=== PATIENT | male | born 1950 | race Caucasian/White ===

== ENCOUNTER 2016-08-31 15:33 | Emergency (ER) | payer MEDICARE, OTHER ==
[~2016-08-31] VITALS: Ht 167.6 cm; Wt 58.5 kg
[~2016-08-31 15:33] MED LIST: ANTI2TAB PO; DUONI NEB; HYDR50 PO; PAXI20TA26 PO; RANI150 PO; SERO100T PO; TRAZ100 PO; ZOFR4TAB3 PO
[2016-08-31 15:50] VITALS: BP 106/76; PULSE 64; RESP 16; O2SAT 95
[2016-08-31] MEDS ORDERED: TRAZ50TA12 PO (17:53)
[2016-08-31] MEDS ORDERED: LISI-519 PO (17:53)
[2016-08-31] MEDS ORDERED: VIST50CA PO (17:53)
[2016-08-31] MEDS ORDERED: RANI150T PO (17:53)
[2016-08-31] MEDS ORDERED: FOLI20CA (17:53)
[2016-08-31] MEDS ORDERED: PROP10TA6 PO (17:53)
[2016-08-31] MEDS ORDERED: SERO50TA PO (17:53)
[2016-08-31] MEDS ORDERED: NALT50TA3 PO (17:53)
[2016-08-31] MEDS ORDERED: PAXI30TA7 PO (17:53)
[2016-08-31 17:54] VITALS: BP 138/87; PULSE 63; RESP 16; O2SAT 97
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
--- NOTE | 2016-08-31 18:51 | RADHPO ---
EXAM DATE/TIME: 08/31/2016 18:24 [facility] COMPARISON: CT ABDOMEN & PELVIS W CONTRAST, March 24, 2015, 9:34. CT LUMBAR SPINE W/O CONTRAST, December 17, 11:56. INDICATIONS : Fell, complains of back pain. MEDICAL HISTORY : None. SURGICAL HISTORY : None. ENCOUNTER: Initial ACUITY: 2 days PAIN SCORE: 8/10 LOCATION: Lumbar FINDINGS: The soft tissues again reveal extensive vascular calcifications in the aorta without evidence of aneu rysm formation. Bony structures reveal stable degenerative changes narrowed L5-S1 disc space with fac et arthritic changes L4-S1 and anterior marginal spurring at all levels most prominent at L5-S1 and L 1-2. There is a mild concavity of the superior vertebral endplate of L1 new relati ve to remote in CT scan which could represent any interim compression. CONCLUSION: Mild contact with the superior vertebral endplate L1 new relative to prior CT scans visualized in thi s region which represents an interim compression Toño Leonardo MD on August 31, 2016 at 18:46 Board Certified Radiologist. This report was verified electronically.
[2016-08-31 19:00] VITALS: BP 128/62; PULSE 60; RESP 16; O2SAT 98
[2016-08-31 20:00] VITALS: BP 134/67; PULSE 60; RESP 16; O2SAT 96
--- NOTE | 2016-08-31 20:32 | RADHPO ---
EXAM DATE/TIME: 08/31/2016 20:00 [facility] COMPARISON: CT BRAIN W/O CONTRAST, December 18, 2013, 16:13. INDICATIONS : Fall. Head pain. RADIATION DOSE: 59.98 CTDIvol (mGy) MEDICAL HISTORY : Hypertension. SURGICAL HISTORY : None. ENCOUNTER: Initial ACUITY: 1 day PAIN SCALE: 10/10 LOCATION: cranial TECHNIQUE: Multiple contiguous axial images were obtained of the head. Using automated exposure control and adj ustment of the mA and/or kV according to patient size, radiation dose was kept as low as reasonably a chievable to obtain optimal diagnostic quality images. FINDINGS: CEREBRUM: The ventricles are normal for age. No evidence of midline shift, mass lesion, hemorrhage or acute in farction. No extra-axial fluid collections are seen. POSTERIOR FOSSA: The cerebellum and brainstem are intact. The 4th ventricle is midline. The cerebellopontine angle i s unremarkable. EXTRACRANIAL: The visualized portion of the orbits is intact. Progressive sinus disease is appreciated with additio nal involvement now in the to the ethmoid sinus disease with air-fluid levels in bilateral maxillary sinuses and sphenoid sinuses SKULL: The calvaria is intact. No evidence of skull fracture. CONCLUSION: Intracranially negative with no acute abnormality. Progressing sinus disease Toño Leonardo MD on August 31, 2016 at 20:29 Board Certified Radiologist. This report was verified electronically.
[2016-08-31 21:05] VITALS: BP 132/66
== END 2016-08-31 21:10 | disposition home or self-care (01) ==
LOC: PHED 15:33
DX: S00.93XA Contusion of unspecified part of head, initial encounter (principal); J44.9 Chronic obstructive pulmonary disease, unspecified; I10 Essential (primary) hypertension; K21.9 Gastro-esophageal reflux disease without esophagitis; F43.10 Post-traumatic stress disorder, unspecified; W18.39XA Other fall on same level, initial encounter; Z91.81 History of falling; Y93.89 Activity, other specified
CPT/HCPCS: 70450; 72100

== ENCOUNTER 2017-05-20 06:53 | Inpatient (IN) | payer OTHER, MEDICARE ==
[~2017-05-20] VITALS: Ht 162.6 cm; Wt 86.5 kg
[2017-05-20] VITALS (17 sets, daily range): BP systolic 138–197; BP diastolic 66–104; PULSE 72–96; RESP 16–32; TEMP 97.7–98.8; O2SAT 94–100
[~2017-05-20 06:53] MED LIST changes: +ALBUAER3 INH; -ANTI2TAB PO; -DUONI NEB; -HYDR50 PO; +INSPIREASE DRUG1 EA; +IPRAAER INH; +LISI-519 PO; +NALT50TA3 PO; -PAXI20TA26 PO; +PAXI30TA7 PO; +PRED20 PO; +PROP10TA6 PO; -RANI150 PO; -SERO100T PO; +SERO50TA PO; -TRAZ100 PO; +TRAZ50TA12 PO; -ZOFR4TAB3 PO
[2017-05-20] MEDS ORDERED: SODIUM CHLOR 0.9% 1000 ML INJ 1,000 ML IV SCH (07:12)
[2017-05-20] MEDS ORDERED: SODIUM CHLORIDE 0.9% FLUSH 5 ML FLUSH IV FLUSH PRN (07:15)
[2017-05-20] MEDS ORDERED: LORazepam 2 MG/ML VIAL IV PUSH ONE (07:15)
--- NOTE | 2017-05-20 07:36 | RADRPT ---
EXAM DATE/TIME: 05/20/2017 07:23 [facility] COMPARISON: CHEST SINGLE AP, May 14, 2017, 8:56. INDICATIONS : Short of breath, wheezing MEDICAL HISTORY : Chronic obstructive pulmonary disease. SURGICAL HISTORY : None. ENCOUNTER: Initial ACUITY: 1 week PAIN SCORE: 0/10 LOCATION: Bilateral chest FINDINGS: A single view of the chest demonstrates the lungs to be symmetrically aerated without evidence of mas s, infiltrate or effusion. The cardiomediastinal contours are unremarkable. Osseous structures are intact. CONCLUSION: No acute disease. Cholo Mustafa MD on May 20, 2017 at 7:34 Board Certified Radiologist. This report was verified electronically.
[2017-05-20 07:41] LABS: AUTOMATED NEUTROPHIL # 7.1 TH/MM3 (1.8-7.7); BASOPHIL # 0.1 TH/MM3 (0-0.2); BASOPHIL % 1.1 % (0.0-2.0); EOSINOPHIL # 0.3 TH/MM3 (0-0.4); EOSINOPHIL % 3.4 % (0.0-4.0); HEMATOCRIT 37.8 % (39.0-51.0); LYMPH % 10.5 % (9.0-44.0); MEAN CELL VOLUME 93.8 FL (80.0-100.0); MEAN CORPUSCULAR HEMOGLOBIN 32.5 PG (27.0-34.0); MEAN CORPUSCULAR HGB CONC 34.6 % (32.0-36.0); MONO % 6.9 % (0.0-8.0); NEUT % 78.1 % (16.0-70.0); PLATELET COUNT 172 TH/MM3 (150-450); RED BLOOD COUNT 4.03 MIL/MM3 (4.50-5.90); RED CELL DISTRIBUTION WIDTH 13.8 % (11.6-17.2); WHITE BLOOD COUNT 9.1 TH/MM3 (4.0-11.0)
[2017-05-20] MEDS ORDERED: VIST25CA PO (07:42)
[2017-05-20] MEDS ORDERED: RANI150T PO (07:42)
[2017-05-20 07:47] LABS: HEMO FLAGS DIFF FINAL
[2017-05-20 07:48] LABS: CHLORIDE 93 MEQ/L (98-107); POTASSIUM 4.1 MEQ/L (3.5-5.1); SODIUM (NA) 128 MEQ/L (136-145)
[2017-05-20 07:51] LABS: ANION GAP 8 MEQ/L (5-15); BICARBONATE 27.2 MEQ/L (21.0-32.0)
[2017-05-20 07:52] LABS: BLOOD UREA NITROGEN 16 MG/DL (7-18)
[2017-05-20 07:54] LABS: ALT (GPT) 36 U/L (12-78); AST (GOT) 42 U/L (15-37)
[2017-05-20 07:55] LABS: GLOMERULAR FILTRATION RATE 78 ML/MIN (>89)
[2017-05-20 07:56] LABS: TOTAL BILIRUBIN ADULT 1.7 MG/DL (0.2-1.0)
[2017-05-20 07:57] LABS: ALKALINE PHOSPHATASE 60 U/L (45-117); CREATINE KINASE 271 U/L (39-308)
[2017-05-20] MEDS ORDERED: RESP: ALBUTEROL 2.5 MG/3 ML NEB (SCH) NEB ONE (08:00)
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
[2017-05-20 08:22] LABS: ALCOHOL 6 MG/DL (0-5)
--- NOTE | 2017-05-20 08:45 | RADRPT ---
EXAM DATE/TIME: 05/20/2017 08:09 [facility] COMPARISON: CT BRAIN W/O CONTRAST, August 31, 2016, 20:00. INDICATIONS : Altered mental status. RADIATION DOSE: 62.63 CTDIvol (mGy) MEDICAL HISTORY : Hypertension. Chronic obstructive pulmonary disease. Gastroesophageal reflux disease. SURGICAL HISTORY : Inguinal hernia repair. Right carotid surgery. ENCOUNTER: Initial ACUITY: 1 week PAIN SCALE: 0/10 LOCATION: cranial TECHNIQUE: Multiple contiguous axial images were obtained of the head. Using automated exposure control and adj ustment of the mA and/or kV according to patient size, radiation dose was kept as low as reasonably a chievable to obtain optimal diagnostic quality images. DICOM format image data is available electro nically for review and comparison. FINDINGS: CEREBRUM: The ventricles are mildly enlarged but stable. No evidence of midline shift, mass lesion, hemorrhage or acute infarction. No extra-axial fluid collections are seen. POSTERIOR FOSSA: The cerebellum and brainstem are intact. The 4th ventricle is midline. The cerebellopontine angle i s unremarkable. EXTRACRANIAL: The visualized portion of the orbits is intact. SKULL: The calvaria is intact. No evidence of skull fracture. CONCLUSION: Stable CT scan of the brain without evidence of acute infarct, hemorrhage, mass or edema. Cholo Mustafa MD on May 20, 2017 at 8:42 Board Certified Radiologist. This report was verified electronically.
[2017-05-20] MEDS ORDERED: OLANZapine IM 10 MG VIAL IM ONE (09:00)
[2017-05-20 09:13] LABS: ACETAMINOPHEN LESS THAN 2.0 MCG/ML (10.0-30.0)
[2017-05-20] MEDS ORDERED: LORazepam 1 MG TAB PO PRN (09:30)
[2017-05-20] MEDS ORDERED: HEPARIN-D5W 25,000 U/250 ML 250 ML IV SCH (09:30)
[2017-05-20] MEDS ORDERED: LORazepam 2 MG/ML VIAL IV PUSH PRN (09:30)
[2017-05-20] MEDS ORDERED: FLUMAZENIL 0.5 MG/5 ML VIAL IV PUSH PRN (09:30)
[2017-05-20] MEDS ORDERED: LORazepam 2 MG TAB PO PRN (09:30)
[2017-05-20] MEDS: FOLIC ACID 1 MG TAB PO SCH (09:30)
[2017-05-20] MEDS ORDERED: diphenhydrAMINE HCL 50 MG/ML VIAL IV PUSH ONE (09:45)
[2017-05-20] MEDS: LORazepam 2 MG/ML VIAL IV PUSH PRN ×9 (10:05→18:49)
[2017-05-20 10:19] LABS: APTT (PATIENT) 28.9 SEC (24.3-30.1); PROTHROMBIN TIME - PATIENT 11.3 SEC (9.8-11.6)
[2017-05-20] MEDS: METOPROLOL TARTRATE 25 MG TAB PO SCH ×2 (10:30→21:00)
[2017-05-20] MEDS: THIAMINE HCL 100 MG TAB PO SCH (10:30)
[2017-05-20] MEDS: SODIUM CHLORIDE 0.9% FLUSH 10 ML FLUSH IV FLUSH PRN (11:17)
[2017-05-20] MEDS ORDERED: ASPIRIN 325 MG TAB PO ONE (11:30)
[2017-05-20] MEDS: NITROGLYCERIN 2% OINT 1 GM PACKET TOP SCH ×2 (12:11→18:19)
--- NOTE | 2017-05-20 13:03 | EKG ---
Date Performed: 05/20/2017 Time Performed: 07:20:10 PTAGE: 67 years EKG: Sinus rhythm PROLONGED QT INTERVAL ABNORMAL ECG Compared to PREVIOUS TRACING , QT interval is somewhat more prolonged, otherwise no significant pak e. PREVIOUS TRACIN05/14/2017 09.43 DOCTOR: Scottie Wallace Interpretating Date/Time 05/20/2017 13:01:07
[2017-05-20] MEDS: methylPREDNISolone SOD SUCC 125 MG/2 ML VIAL IV PUSH SCH (13:21)
[2017-05-20 13:51] LABS: CKMB 6.2 NG/ML (0.5-3.6)
[2017-05-20] MEDS ORDERED: chlordiazePOXIDE 25 MG CAP PO PRN (14:30)
[2017-05-20] MEDS ORDERED: cloNIDine HCL 0.1 MG TAB PO PRN (14:30)
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
[2017-05-20] MEDS ORDERED: hydrOXYzine PAMOATE 25 MG CAP PO PRN (15:00)
[2017-05-20] MEDS ORDERED: RESP: ALBUTEROL 2.5 MG/IPRATROPIUM 0.5 MG NEB (PRN) NEB (15:00)
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
[2017-05-20] MEDS ORDERED: HEPARIN SODIUM - IV 10,000 UNITS/10 ML VIAL IV PUSH PRN ×2 (15:30)
[2017-05-20] MEDS ORDERED: FAMOTIDINE 20 MG TAB PO PRN (15:30)
[2017-05-20 16:36] LABS: HDL CHOLESTEROL 103.8 MG/DL (40.0-60.0)
[2017-05-20] MEDS: methylPREDNISolone SOD SUCC 40 MG/1 ML VIAL IV PUSH SCH (18:19)
[2017-05-20] MEDS ORDERED: CHLORHEXIDINE GLUCONATE 2 % 1 PACK (2 CLOTHS)(extra cloths) TOPICAL PRN (19:00)
[2017-05-20] MEDS: BUDESONIDE-FORMOTEROL 160/4.5 MCG INHALER INH SCH (21:00)
[2017-05-20] MEDS: guaiFENesin E.R. 600 MG TAB PO SCH (21:00)
[2017-05-20] MEDS: traZODone HCL 50 MG TAB PO SCH (21:00)
[2017-05-20] MEDS: PROPRANOLOL HCL 10 MG TAB PO SCH (21:00)
[2017-05-20] MEDS: ATORVASTATIN 10 MG TAB PO SCH (21:00)
[2017-05-20 21:26] LABS: APTT (PATIENT) 68.9 SEC (24.3-30.1)
[2017-05-20 21:44] LABS: CKMB 4.2 NG/ML (0.5-3.6)
[2017-05-21] VITALS (14 sets, daily range): BP systolic 116–177; BP diastolic 71–112; PULSE 48–96; RESP 16–49; TEMP 96–99; O2SAT 93–100
[2017-05-21] MEDS: methylPREDNISolone SOD SUCC 40 MG/1 ML VIAL IV PUSH SCH ×4 (01:03→18:55)
[2017-05-21] MEDS: methylPREDNISolone SOD SUCC 125 MG/2 ML VIAL IV PUSH SCH ×4 (01:03→23:02)
[2017-05-21] MEDS: SODIUM CHLOR 0.9% 1000 ML INJ 1,000 ML IV SCH ×3 (01:04→21:35)
[2017-05-21] MEDS: LORazepam 2 MG/ML VIAL IV PUSH PRN ×13 (02:42→14:06)
[2017-05-21 03:42] LABS: AUTOMATED NEUTROPHIL # 5.1 TH/MM3 (1.8-7.7); BASOPHIL % 0.1 % (0.0-2.0); EOSINOPHIL % 0.1 % (0.0-4.0); HEMATOCRIT 37.9 % (39.0-51.0); HEMO FLAGS DIFF FINAL; LYMPH % 15.7 % (9.0-44.0); MEAN CELL VOLUME 95.7 FL (80.0-100.0); MEAN CORPUSCULAR HGB CONC 33.4 % (32.0-36.0); MONO % 2.7 % (0.0-8.0); NEUT % 81.4 % (16.0-70.0); PLATELET COUNT 130 TH/MM3 (150-450); RED BLOOD COUNT 3.96 MIL/MM3 (4.50-5.90); RED CELL DISTRIBUTION WIDTH 13.9 % (11.6-17.2); WHITE BLOOD COUNT 6.3 TH/MM3 (4.0-11.0)
[2017-05-21 03:59] LABS: ALT (GPT) 32 U/L (12-78); ANION GAP 10 MEQ/L (5-15); AST (GOT) 40 U/L (15-37); BICARBONATE 24.9 MEQ/L (21.0-32.0); BLOOD UREA NITROGEN 21 MG/DL (7-18); CHLORIDE 98 MEQ/L (98-107); GLOMERULAR FILTRATION RATE 78 ML/MIN (>89); MAGNESIUM 1.8 MG/DL (1.5-2.5); SODIUM (NA) 133 MEQ/L (136-145)
[2017-05-21] MEDS: CHLORHEXIDINE GLUCONATE 2 % 1 PACK (2 CLOTHS)(taper/protocol) TOPICAL SCH (04:00)
[2017-05-21 04:02] LABS: CREATINE KINASE 211 U/L (39-308)
[2017-05-21 04:08] LABS: ALKALINE PHOSPHATASE 54 U/L (45-117); CREATINE KINASE 209 U/L (39-308); FREE T4 1.18 NG/DL (0.76-1.46); HDL CHOLESTEROL 107.8 MG/DL (40.0-60.0); LDL CHOLESTEROL 50 MG/DL (0-99); TOTAL BILIRUBIN ADULT 1.7 MG/DL (0.2-1.0)
[2017-05-21 04:14] LABS: CKMB 3.7 NG/ML (0.5-3.6)
[2017-05-21] MEDS: NITROGLYCERIN 2% OINT 1 GM PACKET TOP SCH ×3 (05:57→18:55)
[2017-05-21] MEDS: SODIUM CHLORIDE 0.9% FLUSH 10 ML FLUSH IV FLUSH SCH ×3 (06:04→21:42)
[2017-05-21] MEDS: THIAMINE HCL 100 MG TAB PO SCH (09:00)
[2017-05-21] MEDS: QUEtiapine FUMARATE 25 MG TAB PO SCH (09:00)
[2017-05-21] MEDS: BUDESONIDE-FORMOTEROL 160/4.5 MCG INHALER INH SCH ×2 (09:00→21:00)
[2017-05-21] MEDS: ASPIRIN 325 MG TAB PO SCH (09:00)
[2017-05-21] MEDS: PROPRANOLOL HCL 10 MG TAB PO SCH ×2 (09:00→21:41)
[2017-05-21] MEDS: LISINOPRIL 5 MG TAB PO SCH (09:00)
[2017-05-21] MEDS: METOPROLOL TARTRATE 25 MG TAB PO SCH ×2 (09:00→21:42)
[2017-05-21] MEDS: guaiFENesin E.R. 600 MG TAB PO SCH ×2 (09:00→21:41)
[2017-05-21] MEDS: FOLIC ACID 1 MG TAB PO SCH ×2 (09:00→16:58)
[2017-05-21] MEDS: PARoxetine HCL 20 MG TAB PO SCH (09:00)
[2017-05-21] MEDS ORDERED: DEXMEDETOMIDINE INJ 1,000 MCG in SODIUM CHLOR 0.9% 250 ML INJ 240 ML IV PRN (11:30)
--- NOTE | 2017-05-21 11:40 | HHI.PR ---
Subjective Remarks patient very restless, very agitated, requiring restraints HR 110 BP 160/110 Objective Vitals Vital Signs Date Time Temp Pulse Resp B/P (MAP) Pulse Ox O2 Delivery O2 Flow Rate FiO2 05/21/17 07:34 96 Nasal Cannula 2.00 05/21/17 04:00 99.0 74 22 116/71 (86) 96 05/21/17 00:00 98.5 75 16 116/72 (87) 94 05/21/17 00:00 74 05/20/17 22:00 74 05/20/17 20:09 96 Nasal Cannula 2.00 05/20/17 20:00 98.5 96 32 138/100 (113) 96 05/20/17 20:00 74 05/20/17 18:00 84 05/20/17 16:00 84 05/20/17 15:30 88 05/20/17 15:30 97.8 88 24 142/66 (91) 96 05/20/17 14:34 88 05/20/17 14:24 97.7 85 20 142/81 (101) 96 05/20/17 13:30 88 30 98 Nasal Cannula 2.00 05/20/17 13:30 78 30 176/87 (116) 98 Nasal Cannula 05/20/17 12:30 82 30 98 Nasal Cannula 2.00 I/O 05/20/17 05/20/17 05/20/17 05/21/17 05/21/17 05/21/17 07:00 15:00 23:00 07:00 15:00 23:00 Intake Total 1000 ml 755 ml Output Total 250 ml 700 ml Balance 1000 ml -250 ml 55 ml Intake IV Total 1000 ml 755 ml Output Urine Total 250 ml 700 ml Result Diagram: 05/21/17 0326 05/21/17 0326 Imaging Last Impressions Head CT 05/20/17711 Signed Impressions: Service Date/Time: Saturday, May 20, 2017 08:09 - CONCLUSION: Stable CT scan of the brain without evidence of acute infarct, hemorrhage, mass or edema. Cholo Mustafa MD Chest X-Ray 05/20/17711 Signed Impressions: Service Date/Time: Saturday, May 20, 2017 07:23 - CONCLUSION: No acute disease. Cholo Mustafa MD Objective Remarks very confused, agitated anicteric no nucahl rigidity lungs- ocasional wheeezes tachycardic abdomen-soft extremities moves all extremities spontaneously A/P Problem List: (1) NSTEMI (non-ST elevated myocardial infarction) ICD Code: I21.4 - Non-ST elevation (NSTEMI) myocardial infarction (2) Alcohol abuse ICD Code: F10.10 - Alcohol abuse, uncomplicated (3) COPD (chronic obstructive pulmonary disease) ICD Code: J44.9 - Chronic obstructive pulmonary disease, unspecified (4) Elevated troponin ICD Code: R74.8 - Abnormal levels of other serum enzymes Status: Acute (5) Altered mental status ICD Code: R41.82 - Altered mental status, unspecified Status: Acute (6) Hyponatremia ICD Code: E87.1 - Hypo-osmolality and hyponatremia Status: Acute Assessment and Plan 67 years old male Severe [place] DTs- RASS -2 -start Precedex drip -consult Process Manager- elevated, CK, mildly troponin - likely from DTs - seen by Cardiology- no further work up needed COPD- with wheezing - will be started on steroids -d/w with Process Manager Transfer to Process Manager service- severe DTs, d/w Dr. Rodriguez Problem Qualifiers (1) Altered mental status: Qualified Codes: R41.82 - Altered mental status, unspecified Mary Lou Hines MD May 21, 2017 11:40
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
[2017-05-21] MEDS: SODIUM CHLORIDE 0.9% FLUSH 10 ML FLUSH IV FLUSH PRN (11:54)
[2017-05-21] MEDS: chlordiazePOXIDE 25 MG CAP PO SCH ×2 (12:00→21:40)
[2017-05-21] MEDS: FAMOTIDINE 20 MG TAB PO SCH ×2 (12:00→21:41)
[2017-05-21] MEDS: RESP: ALBUTEROL 2.5 MG/IPRATROPIUM 0.5 MG NEB (SCH) NEB ×4 (12:04→23:06)
[2017-05-21 13:11] LABS: APTT (PATIENT) 104.8 SEC (24.3-30.1)
[2017-05-21] MEDS ORDERED: MIDAZOLAM HCL 5 MG/ML VIAL (1 ML) ONE (14:10)
[2017-05-21] MEDS ORDERED: ETOMIDATE 40 MG/20 ML VIAL ONE (14:10)
--- NOTE | 2017-05-21 15:14 | PD.PSY.CON ---
Provisional Diagnosis Admission Date May 20, 2017 at 09:22 History of Present Illness Service Psychiatry Consult Requested By Critical care team Reason for Consult Agitation Primary Care Phys[facility] Past Family Social History Coded Allergies: gabapentin (Unverified Allergy, Severe, GI UPSET, 05/20/17) levofloxacin (Unverified Allergy, Severe, RASH, ITCHINESS, 05/20/17) Active Scripts Albuterol 8.5 GM Inh (Proair Hfa 8.5 GM Inh) 90 Mcg/Act Aer, 2 PUFF INH Q4-6H Y for SHORTNESS OF BREATH, #1 INHALER 0 Refills 108 mcg/actuation Prov:Jacquie Silva MD 05/14/17 Prednisone (Prednisone) 20 Mg Tab, 40 MG PO DAILY, #10 TAB 0 Refills Take 40 mg (2 tablets) daily for 5 days Prov:Jacquie Silva MD 05/14/17 Reported Medications Ranitidine (Ranitidine) 150 Mg Tab, 150 MG PO DAILY Y for heartburn, #30 TAB 0 Refills 05/20/17 Hydroxyzine Pamoate (Vistaril) 25 Mg Cap, 25 MG PO TID Y for ANXIETY, CAP 0 Refills 05/20/17 Ipratropium-Albuterol Inh (Combivent Respimat Inh) 20-100 Nursing Home/Act Aero, 1 PUFF INH QID for Asthma Management, #1 INHALER 0 Refills 05/14/17 Lisinopril (Lisinopril) 5 Mg Tab, 10 MG PO DAILY for Blood Pressure Management, #30 TAB 0 Refills 08/31/16 Propranolol (Propranolol) 10 Mg Tab, 20 MG PO Q12HR, #60 TAB 0 Refills 08/31/16 Trazodone (Trazodone) 50 Mg Tab, 50 MG PO HS for Control Depression, #30 TAB 0 Refills 08/31/16 Quetiapine (Seroquel) 50 Mg Tab, 50 MG PO DAILY, #30 TAB 0 Refills 08/31/16 Paroxetine (Paxil) 30 Mg Tab, 60 MG PO DAILY, #30 TAB 0 Refills 08/31/16 Discontinued Reported Medications Naltrexone (Naltrexone) 50 Mg Tab, 25 MG PO DAILY, TAB 0 Refills 08/31/16 Folic Acid (Folic Acid) 20 Mg Cap 08/31/16 Ranitidine (Ranitidine) 150 Mg Tab, 150 MG PO DAILY Y for REFLUX, #30 TAB 0 Refills 08/31/16 Hydroxyzine Pamoate (Vistaril) 50 Mg Cap, 50 MG PO HS, CAP 0 Refills 08/31/16 Discontinued Scripts Spacer/Device For Mdi (Inspirease Drug Delivery) 1 Ea Mis, EA .ROUTE DIRECTED , #1 0 Refills Prov:Jacquie Silva MD 05/14/17 Current Medications Medications (Trade) Dose Ordered Sig/Sumit Route Start Time Stop Time Status Last Admin (NS Flush) 2 ml BID IV FLUSH 05/20/17 21:00 05/21/17 09:00 (NS Flush) 2 ml UNSCH PRN IV FLUSH 05/20/17 09:30 05/21/17 11:54 (Nitroglycerin 2% Oint) 0.5 inch Q6HR TOP 05/20/17 12:00 05/21/17 13:09 (Lipitor) 10 mg HS PO 05/20/17 21:00 (Folate) 1 mg DAILY PO 05/20/17 09:30 05/25/17 09:29 (Vitamin B1) 100 mg DAILY PO 05/20/17 10:30 (Romazicon Inj) 0.2 mg Q1M PRN IV PUSH 05/20/17 09:30 (Ativan) 1 mg Q4H PRN PO 05/20/17 09:30 (Ativan Inj) 1 mg Q4H PRN IV PUSH 05/20/17 09:30 05/21/17 08:05 (Ativan) 2 mg Q2H PRN PO 05/20/17 09:30 (Ativan Inj) 2 mg Q2H PRN IV PUSH 05/20/17 09:30 (Ativan Inj) 2 mg Q1H PRN IV PUSH 05/20/17 09:30 05/21/17 10:11 (Ativan Inj) 2 mg Q15M PRN IV PUSH 05/20/17 09:30 05/21/17 14:06 (Lopressor) 25 mg Q12HR PO 05/20/17 10:30 (SoluMEDROL INJ) 125 mg Q8HR IV PUSH 05/20/17 14:00 05/21/17 06:04 (Aspirin) 325 mg DAILY PO 05/21/17 09:00 (Catapres) 0.1 mg Q4H PRN PO 05/20/17 14:30 (SoluMEDROL INJ) 40 mg Q6HR IV PUSH 05/20/17 18:00 05/21/17 13:09 (Mucinex Er) 600 mg BID PO 05/20/17 21:00 (Prinivil) 10 mg DAILY PO 05/21/17 09:00 (Inderal) 20 mg Q12HR PO 05/20/17 21:00 (Desyrel) 50 mg HS PO 05/20/17 21:00 (Paxil) 60 mg DAILY PO 05/21/17 09:00 (SEROquel) 50 mg DAILY PO 05/21/17 09:00 (Symbicort 160-4.5 Inh) 2 puff Q12HR INH 05/20/17 21:00 (Chlorhexidine 2% Cloth) 3 pack DAILY@04 TOPICAL 05/21/17 04:00 05/25/17 04:01 05/21/17 04:00 (Chlorhexidine 2% Cloth) 1 pack UNSCH PRN TOPICAL 05/20/17 19:00 05/25/17 18:59 Sodium Chloride 1,000 ml @ 84 mls/hr [id number] IV 05/20/17 21:45 05/21/17 10:11 (Librium) 50 mg Q8H PO 05/21/17 12:00 (Duoneb Neb) 1 ampule Q4HR NEB NEB 05/21/17 12:00 05/21/17 14:58 (Pepcid) 20 mg BID PO 05/21/17 12:00 (Heparin Inj) 5,000 units Q12HR SQ 05/21/17 21:00 Multivitamins 10 ml/Thiamine HCl 100 mg/Sodium Chloride 511 ml @ 125 mls/hr DAILY IV 05/21/17 14:00 (Folate) 1 mg DAILY PO 05/21/17 14:00 Dexmedetomidine HCl 1000 mcg/ Sodium Chloride 250 ml @ 3.12 mls/hr TITRATE PRN IV 05/21/17 14:45 Physical Exam Vital Signs Vital Signs Date Time Temp Pulse Resp B/P (MAP) Pulse Ox O2 Delivery O2 Flow Rate FiO2 05/21/17 07:34 96 Nasal Cannula 2.00 05/21/17 04:00 99.0 74 22 116/71 (86) I/O 05/21/17 05/21/17 05/22/17 08:00 16:00 00:00 Intake Total 755 ml Output Total 700 ml Balance 55 ml Lab Results Test 05/20/17 16:10 05/20/17 20:38 05/21/17 03:26 05/21/17 12:33 Nasal Screen MRSA (PCR) MRSA NOT DETECTED Activated Partial Thromboplast Time 68.9 SEC 104.8 SEC Ammonia 38 MCMOL/L 17 MCMOL/L Total Creatine Kinase 339 U/L 209 U/L Creatine Kinase MB 4.2 NG/ML 3.7 NG/ML Creatine Kinase MB % 1.2 % Troponin I 0.10 NG/ML 0.05 NG/ML White Blood Count 6.3 TH/MM3 Red Blood Count 3.96 MIL/MM3 Hemoglobin 12.7 GM/DL Hematocrit 37.9 % Mean Corpuscular Volume 95.7 FL Mean Corpuscular Hemoglobin 32.0 PG Mean Corpuscular Hemoglobin Concent 33.4 % Red Cell Distribution Width 13.9 % Platelet Count 130 TH/MM3 Mean Platelet Volume 7.5 FL Neutrophils (%) (Auto) 81.4 % Lymphocytes (%) (Auto) 15.7 % Monocytes (%) (Auto) 2.7 % Eosinophils (%) (Auto) 0.1 % Basophils (%) (Auto) 0.1 % Neutrophils # (Auto) 5.1 TH/MM3 Lymphocytes # (Auto) 1.0 TH/MM3 Monocytes # (Auto) 0.2 TH/MM3 Eosinophils # (Auto) 0.0 TH/MM3 Basophils # (Auto) 0.0 TH/MM3 CBC Comment DIFF FINAL Differential Comment Blood Urea Nitrogen 21 MG/DL Creatinine 0.96 MG/DL Random Glucose 125 MG/DL Total Protein 6.8 GM/DL Albumin 3.2 GM/DL Calcium Level 8.4 MG/DL Phosphorus Level 2.6 MG/DL Magnesium Level 1.8 MG/DL Alkaline Phosphatase 54 U/L Aspartate Amino Transf (AST/SGOT) 40 U/L Alanine Aminotransferase (ALT/SGPT) 32 U/L Total Bilirubin 1.7 MG/DL Sodium Level 133 MEQ/L Potassium Level 4.0 MEQ/L Chloride Level 98 MEQ/L Carbon Dioxide Level 24.9 MEQ/L Anion Gap 10 MEQ/L Estimat Glomerular Filtration Rate 78 ML/MIN Triglycerides Level 61 MG/DL Cholesterol Level 170 MG/DL LDL Cholesterol 50 MG/DL HDL Cholesterol 107.8 MG/DL Cholesterol/HDL Ratio 1.57 RATIO Free Thyroxine 1.18 NG/DL Thyroid Stimulating Hormone 3rd Gen 0.568 uIU/ML Assessment & Plan Problem List: (1) Altered mental status ICD Codes: R41.82 - Altered mental status, unspecified Status: Acute Assessment & Plan: Patient was visited for psychiatric evaluation, but he was sedated unable to participate in the psychiatric assessment. We'll come back once the patient is awake. Assessment & Plan Estimated LOS: days Problem Qualifiers (1) Altered mental status: Qualified Codes: R41.82 - Altered mental status, unspecified Tee Howe MD May 21, 2017 15:14
[2017-05-21] MEDS: SODIUM CHLOR 0.45% IV SCH (15:59)
[2017-05-21] MEDS: THIAMINE IV SCH (15:59)
[2017-05-21] MEDS: MULTIVITAMIN IV SCH (15:59)
[2017-05-21 16:13] LABS: HEMOGLOBIN A1a 1.1 %; HEMOGLOBIN A1b 1.3 %; HEMOGLOBIN LA1C 2.3 %; HEMOGLOBIN P3 3.4 %
[2017-05-21 16:13] LABS: APTT (PATIENT) 41.2 SEC (24.3-30.1)
--- NOTE | 2017-05-21 19:24 | EKG ---
Date Performed: 05/20/2017 Time Performed: 13:06:36 PTAGE: 67 years EKG: Sinus rhythm NORMAL ECG Since PREVIOUS TRACING , no significant change noted PREVIOUS TRACIN05/20/2017 07.20 DOCTOR: Caity Godoy Interpretating Date/Time 05/21/2017 19:22:48
--- NOTE | 2017-05-21 19:24 | EKG ---
Date Performed: 05/20/2017 Time Performed: 18:58:23 PTAGE: 67 years EKG: Sinus rhythm PROLONGED QT INTERVAL ABNORMAL ECG Since PREVIOUS TRACING , no significant change noted PREVIOUS TRACIN05/20/2017 13.06 DOCTOR: Caity Godoy Interpretating Date/Time 05/21/2017 19:23:06
[2017-05-21] MEDS: ATORVASTATIN 10 MG TAB PO SCH (21:41)
[2017-05-21] MEDS: traZODone HCL 50 MG TAB PO SCH (21:41)
[2017-05-21] MEDS: HEPARIN SODIUM - SQ 10,000 UNITS/ML VIAL SQ SCH (21:42)
[2017-05-21 21:50] LABS: BLOOD, URINE NEG (NEG); COMMENT (UR) CATH-CULT NOT IND; CULTURE IF INDICATED CATH CULTURE NOT IND; GLUCOSE,URINE NEG (NEG); HYALINE CAST, URINE 10 /lpf (RARE); KETONE, URINE 10 mg/dL (NEG); MUCUS URINE FEW /lpf (OCC); NITRITE,URINE NEG (NEG); SQUAMOUS EPITHELIAL CELL URINE <1 /hpf (0-5); URINE COLOR YELLOW (YELLW/STRAW)
[2017-05-22] VITALS (20 sets, daily range): BP systolic 85–148; BP diastolic 49–70; PULSE 49–93; RESP 16–24; TEMP 94.2–98.5; O2SAT 95–99
[2017-05-22] MEDS: methylPREDNISolone SOD SUCC 40 MG/1 ML VIAL IV PUSH SCH ×5 (00:42→23:15)
[2017-05-22] MEDS: NITROGLYCERIN 2% OINT 1 GM PACKET TOP SCH ×4 (00:42→19:57)
[2017-05-22] MEDS: RESP: ALBUTEROL 2.5 MG/IPRATROPIUM 0.5 MG NEB (SCH) NEB ×6 (03:34→23:18)
[2017-05-22] MEDS: CHLORHEXIDINE GLUCONATE 2 % 1 PACK (2 CLOTHS)(taper/protocol) TOPICAL SCH (04:00)
[2017-05-22] MEDS: chlordiazePOXIDE 25 MG CAP PO SCH ×3 (05:07→23:24)
[2017-05-22] MEDS: DEXMEDETOMIDINE INJ 1,000 MCG in SODIUM CHLOR 0.9% 250 ML INJ 240 ML IV PRN (06:08)
[2017-05-22] MEDS: methylPREDNISolone SOD SUCC 125 MG/2 ML VIAL IV PUSH SCH ×3 (06:39→23:26)
--- NOTE | 2017-05-22 08:32 | PD.PSY.CON ---
Provisional Diagnosis Admission Date May 20, 2017 at 09:22 History of Present Illness Service Psychiatry Consult Requested By Critical care Reason for Consult Agitation [facility] Past Family Social History Coded Allergies: gabapentin (Unverified Allergy, Severe, GI UPSET, 05/20/17) levofloxacin (Unverified Allergy, Severe, RASH, ITCHINESS, 05/20/17) Active Scripts Albuterol 8.5 GM Inh (Proair Hfa 8.5 GM Inh) 90 Mcg/Act Aer, 2 PUFF INH Q4-6H Y for SHORTNESS OF BREATH, #1 INHALER 0 Refills 108 mcg/actuation Prov:Jacquie Silva MD 05/14/17 Prednisone (Prednisone) 20 Mg Tab, 40 MG PO DAILY, #10 TAB 0 Refills Take 40 mg (2 tablets) daily for 5 days Prov:Jacquie Silva MD 05/14/17 Reported Medications Ranitidine (Ranitidine) 150 Mg Tab, 150 MG PO DAILY Y for heartburn, #30 TAB 0 Refills 05/20/17 Hydroxyzine Pamoate (Vistaril) 25 Mg Cap, 25 MG PO TID Y for ANXIETY, CAP 0 Refills 05/20/17 Ipratropium-Albuterol Inh (Combivent Respimat Inh) 20-100 Senior Care/Act Aero, 1 PUFF INH QID for Asthma Management, #1 INHALER 0 Refills 05/14/17 Lisinopril (Lisinopril) 5 Mg Tab, 10 MG PO DAILY for Blood Pressure Management, #30 TAB 0 Refills 08/31/16 Propranolol (Propranolol) 10 Mg Tab, 20 MG PO Q12HR, #60 TAB 0 Refills 08/31/16 Trazodone (Trazodone) 50 Mg Tab, 50 MG PO HS for Control Depression, #30 TAB 0 Refills 08/31/16 Quetiapine (Seroquel) 50 Mg Tab, 50 MG PO DAILY, #30 TAB 0 Refills 08/31/16 Paroxetine (Paxil) 30 Mg Tab, 60 MG PO DAILY, #30 TAB 0 Refills 08/31/16 Discontinued Reported Medications Naltrexone (Naltrexone) 50 Mg Tab, 25 MG PO DAILY, TAB 0 Refills 08/31/16 Discontinued Scripts Spacer/Device For Mdi (Inspirease Drug Delivery) 1 Bruno Valderrama, EA SonnyROUTE DIRECTED , #1 0 Refills Prov:Jacquie Silva MD 05/14/17 Current Medications Medications (Trade) Dose Ordered Sig/Sumit Route Start Time Stop Time Status Last Admin (NS Flush) 2 ml BID IV FLUSH 05/20/17 21:00 05/21/17 21:42 (NS Flush) 2 ml UNSCH PRN IV FLUSH 05/20/17 09:30 05/21/17 11:54 (Nitroglycerin 2% Oint) 0.5 inch Q6HR TOP 05/20/17 12:00 05/22/17 06:39 (Lipitor) 10 mg HS PO 05/20/17 21:00 05/21/17 21:41 (Folate) 1 mg DAILY PO 05/20/17 09:30 05/25/17 09:29 (Vitamin B1) 100 mg DAILY PO 05/20/17 10:30 (Romazicon Inj) 0.2 mg Q1M PRN IV PUSH 05/20/17 09:30 (Ativan) 1 mg Q4H PRN PO 05/20/17 09:30 (Ativan Inj) 1 mg Q4H PRN IV PUSH 05/20/17 09:30 05/21/17 08:05 (Ativan) 2 mg Q2H PRN PO 05/20/17 09:30 (Ativan Inj) 2 mg Q2H PRN IV PUSH 05/20/17 09:30 (Ativan Inj) 2 mg Q1H PRN IV PUSH 05/20/17 09:30 05/21/17 10:11 (Ativan Inj) 2 mg Q15M PRN IV PUSH 05/20/17 09:30 05/21/17 14:06 (Lopressor) 25 mg Q12HR PO 05/20/17 10:30 05/21/17 21:42 (SoluMEDROL INJ) 125 mg Q8HR IV PUSH 05/20/17 14:00 05/22/17 06:39 (Aspirin) 325 mg DAILY PO 05/21/17 09:00 (Catapres) 0.1 mg Q4H PRN PO 05/20/17 14:30 (SoluMEDROL INJ) 40 mg Q6HR IV PUSH 05/20/17 18:00 05/22/17 06:39 (Mucinex Er) 600 mg BID PO 05/20/17 21:00 05/21/17 21:41 (Prinivil) 10 mg DAILY PO 05/21/17 09:00 (Inderal) 20 mg Q12HR PO 05/20/17 21:00 05/21/17 21:41 (Desyrel) 50 mg HS PO 05/20/17 21:00 05/21/17 21:41 (Paxil) 60 mg DAILY PO 05/21/17 09:00 (SEROquel) 50 mg DAILY PO 05/21/17 09:00 (Symbicort 160-4.5 Inh) 2 puff Q12HR INH 05/20/17 21:00 (Chlorhexidine 2% Cloth) 3 pack DAILY@04 TOPICAL 05/21/17 04:00 05/25/17 04:01 05/22/17 04:00 (Chlorhexidine 2% Cloth) 1 pack UNSCH PRN TOPICAL 05/20/17 19:00 05/25/17 18:59 Sodium Chloride 1,000 ml @ 84 mls/hr [id number] IV 05/20/17 21:45 05/21/17 21:35 (Librium) 50 mg Q8H PO 05/21/17 12:00 05/22/17 05:07 (Duoneb Neb) 1 ampule Q4HR NEB NEB 05/21/17 12:00 05/22/17 07:37 (Pepcid) 20 mg BID PO 05/21/17 12:00 05/21/17 21:41 (Heparin Inj) 5,000 units Q12HR SQ 05/21/17 21:00 05/21/17 21:42 Multivitamins 10 ml/Thiamine HCl 100 mg/Sodium Chloride 511 ml @ 125 mls/hr DAILY IV 05/21/17 14:00 05/21/17 15:59 (Folate) 1 mg DAILY PO 05/21/17 14:00 05/21/17 16:58 Dexmedetomidine HCl 1000 mcg/ Sodium Chloride 250 ml @ 3.12 mls/hr TITRATE PRN IV 05/21/17 14:45 05/22/17 06:08 Physical Exam Vital Signs Vital Signs Date Time Temp Pulse Resp B/P (MAP) Pulse Ox O2 Delivery O2 Flow Rate FiO2 05/22/17 07:38 99 Nasal Cannula 2.00 05/22/17 06:00 57 05/22/17 04:00 96.8 18 148/66 (93) I/O 05/22/17 05/22/17 05/23/17 08:00 16:00 00:00 Intake Total 250 ml Output Total 350 ml Balance -100 ml Lab Results Test 05/21/17 12:33 05/21/17 15:20 05/21/17 18:00 Activated Partial Thromboplast Time 104.8 SEC 41.2 SEC Urine Color YELLOW Urine Turbidity CLEAR Urine pH 6.0 Urine Specific Loraine 1.032 Urine Protein TRACE mg/dL Urine Glucose (UA) NEG mg/dL Urine Ketones 10 mg/dL Urine Occult Blood NEG Urine Nitrite NEG Urine Bilirubin NEG Urine Urobilinogen 4.0 MG/DL Urine Leukocyte Esterase NEG Urine RBC LESS THAN 1 /hpf Urine WBC LESS THAN 1 /hpf Urine Squamous Epithelial Cells <1 /hpf Urine Hyaline Casts 10 /lpf Urine Mucus FEW /lpf Microscopic Urinalysis Comment CATH-CULT NOT IND Urine Opiates Screen NEG Urine Barbiturates Screen NEG Urine Amphetamines Screen NEG Urine Benzodiazepines Screen POS Urine Cocaine Screen NEG Urine Cannabinoids Screen NEG Assessment & Plan Problem List: (1) Altered mental status ICD Codes: R41.82 - Altered mental status, unspecified Status: Acute Assessment & Plan: Extremely sedated due agitation and severe alcohol withdrawal, unable to perform a psychiatric assessment at this moment. Will reevaluate once awake. Assessment & Plan Estimated LOS: days Problem Qualifiers (1) Altered mental status: Qualified Codes: R41.82 - Altered mental status, unspecified Tee Howe MD May 22, 2017 08:32
[2017-05-22] MEDS: BUDESONIDE-FORMOTEROL 160/4.5 MCG INHALER INH SCH ×2 (09:00→21:00)
[2017-05-22] MEDS: FOLIC ACID 1 MG TAB PO SCH ×2 (09:00→10:15)
[2017-05-22] MEDS: SODIUM CHLORIDE 0.9% FLUSH 10 ML FLUSH IV FLUSH SCH ×2 (09:00→19:58)
[2017-05-22] MEDS: guaiFENesin E.R. 600 MG TAB PO SCH ×2 (09:00→19:59)
[2017-05-22] MEDS: SODIUM CHLOR 0.9% 1000 ML INJ 1,000 ML IV SCH ×2 (09:30→21:25)
[2017-05-22] MEDS: THIAMINE HCL 100 MG TAB PO SCH (10:15)
[2017-05-22] MEDS: QUEtiapine FUMARATE 25 MG TAB PO SCH (10:15)
[2017-05-22] MEDS: ASPIRIN 325 MG TAB PO SCH (10:15)
[2017-05-22] MEDS: FAMOTIDINE 20 MG TAB PO SCH ×2 (10:15→19:59)
[2017-05-22] MEDS: PARoxetine HCL 20 MG TAB PO SCH (10:16)
[2017-05-22] MEDS: METOPROLOL TARTRATE 25 MG TAB PO SCH ×2 (10:16→19:59)
[2017-05-22] MEDS: LISINOPRIL 5 MG TAB PO SCH (10:16)
[2017-05-22] MEDS: PROPRANOLOL HCL 10 MG TAB PO SCH ×2 (10:16→19:58)
[2017-05-22] MEDS: HEPARIN SODIUM - SQ 10,000 UNITS/ML VIAL SQ SCH ×2 (10:18→20:00)
--- NOTE | 2017-05-22 10:48 | HHI.CCPN ---
Subjective Remarks/Hospital Course 05/21: Patient is a 67-year-old male with past medical history of COPD, alcohol dependence, PTSD, anxiety, hypertension was initially brought to the [place] emergency department for altered mental status and agitation. Patient has a history of heavy alcohol use more than 6 beers in addition to Rum. Apparently he quit or reduced drinking 2 days ago. Patient was transferred to the main campus due to elevated mildly elevated troponin. Patient was admitted to the ICU by hospitalist for severe alcohol withdrawal and mildly elevated troponin was placed on CIWA protocol. Dr. Walls was consulted for cardiology and patient was placed on IV heparin and aspirin along with beta blockers. This was not deemed ACS Critical care medicine was consulted as patient was found to be progressively and severely agitated and uncooperative and becoming a threat to himself and others. On my evaluation he is unable to give any history and was in severe withdrawal and agitated. He has pulled out his right peripheral IV and is bleeding from the site. I have ordered a stat Ativan 2 mg IV 1 and placed on Precedex infusion. Will also place him on scheduled Librium 50 mg by mouth every 8 hours after placing an NG tube. Supplement multivitamin and thiamine. If his severe withdrawal symptoms are not controlled he may need endotracheal intubation and continuous heavy IV sedation 05/22: Patient on Precedex overnight. Has received Librium and appears to be drowsy currently. Objective Vital Signs Date Time Temp Pulse Resp B/P (MAP) Pulse Ox O2 Delivery O2 Flow Rate FiO2 05/22/17 07:38 99 Nasal Cannula 2.00 05/22/17 06:00 57 05/22/17 04:00 96.8 18 148/66 (93) Intake and Output 05/22/17 05/22/17 05/23/17 08:00 16:00 00:00 Intake Total 250 ml Output Total 350 ml Balance -100 ml Result Diagram: 05/21/17 0326 05/21/17 0326 Imaging CXR no acute infiltrate Objective Remarks GENERAL: 67 yo male who is in severe aldehol withdrawal severely agitated SKIN: Cool and dry. Bleeding from R hand PIV site operations manager: Atraumatic. Normocephalic. No temporal or scalp tenderness. EYES: Extraocular motions intact. No scleral icterus. No injection or drainage. ENT: Unable to examine oral cavity NECK: Trachea midline. No JVD or lymphadenopathy. CARDIOVASCULAR: Tachycardic rate and rhythm without murmurs, gallops, or rubs. RESPIRATORY: Expiratory wheezes bilaterally. Breath sounds equa GASTROINTESTINAL: Abdomen soft, non-tender, nondistended. MUSCULOSKELETAL: Extremities without clubbing, cyanosis, or edema. NEUROLOGICAL: Very confused agitated, thrashing about in bed, Do not follow commands A/P Assessment and Plan NEURO: Severe alcohol withdrawal Acute encephalopathy Alcohol dependence PTSD/anxiety -Continue Precedex at 0.5 g per KG per hour titrated to maximum dose 2 g per kg per hour temporarily and then keep maximum dose at 1.6 mcg/kg/hr. Currently at 1 crista per KG per hour. - Librium 50 q8h. Continue Ativan per CIWA protocol RESP: Acute COPD exacerbation Respiratory insufficiency Tobacco abuse - Nasal cannula oxygen. - Airway protection is questionable with increased sedation, may need endotracheal intubation and mechanical ventilation - DuoNeb every 4 hours scheduled and when necessary - IV Solu-Medrol 60 mg every 6 hours CV: Mild troponin elevation - Normal saline 84 ml per hour - Cardiology Dr. Walls - Continue aspirin, IV heparin will be discontinued start subcutaneous heparin - Continue metoprolol GI: - NPO, IV famotidine : - Monitor renal function closely. Place Gonsalez catheter due urinary retention ID: - Monitor without antibiotics HEME: - Monitor CBC, CMP, coags ENDO: - Electrolyte replacement protocol PROPH: - Bilateral lower extremity SCDs. Heparin, famotidine LINES: - Utilize peripheral IVs, central line if needed Updated patient's regarding current clinical status and plan of care and she voiced understanding. Condition remains critical with severe delirium tremens on Precedex drip currently. Time spent on critical care excluding procedures 30 minutes Alvarado Lord MD May 22, 2017 10:48
[2017-05-22] MEDS ORDERED: hydrALAZINE HCL 20 MG/ML VIAL IV PUSH PRN (11:00)
[2017-05-22] MEDS: THIAMINE IV SCH (12:21)
[2017-05-22] MEDS: MULTIVITAMIN IV SCH (12:21)
[2017-05-22] MEDS: SODIUM CHLOR 0.45% IV SCH (12:21)
[2017-05-22] MEDS: LORazepam 2 MG/ML VIAL IV PUSH PRN ×5 (16:20→17:25)
--- NOTE | 2017-05-22 16:59 | ECHRPT ---
Indication: HYPERTENSIVE HEART DISEASE CONCLUSIONS Normal left ventricular size. Wall thickness is normal. The left ventricular systolic function is normal with an estimated ejection fraction in the range of 60-65%. Mild mitral valve regurgitation. Mild aortic valve regurgitation. There is trace tricuspid valve regurgitation. BP: 116 / 71 HR: 74 Rhythm: MEASUREMENTS (Male / Female) Normal Values Technical Quality: 2D ECHO LV Diastolic Diameter PLAX 4.5 cm 4.2 - 5.9 / 3.9 - 5.3 cm LV Systolic Diameter PLAX 3.2 cm IVS Diastolic Thickness 0.8 cm 0.6 - 1.0 / 0.6 - 0.9 cm LVPW Diastolic Thickness 0.7 cm 0.6 - 1.0 / 0.6 - 0.9 cm LV Relative Wall Thickness 0.3 RV Internal Dim ED PLAX 2.0 cm LA Systolic Diameter LX 3.5 cm 3.0 - 4.0 / 2.7 - 3.8 cm M-MODE Aortic Root Diameter MM 3.5 cm AV Cusp Separation MM 2.0 cm DOPPLER MR Peak Velocity 376.0 cm/s MR Peak Gradient 56.6 mmHg Mitral E Point Velocity 78.5 cm/s Mitral A Point Velocity 101.0 cm/s Mitral E to A Ratio 0.8 TR Peak Velocity 242.0 cm/s TR Peak Gradient 23.4 mmHg FINDINGS LEFT VENTRICLE Normal left ventricular size. Wall thickness is normal. The left ventricular systolic function is normal with an estimated ejection fraction in the range of 60-65%. RIGHT VENTRICLE Normal right ventricular size and systolic function. LEFT ATRIUM The left atrial size is normal. RIGHT ATRIUM The right atrial size is normal. ATRIAL SEPTUM Normal atrial septal thickness without atrial level shunting by limited color doppler interrogation. AORTA The aortic root and proximal ascending aorta are normal in size on limited imaging. MITRAL VALVE Mild mitral valve regurgitation. AORTIC VALVE Mild aortic valve regurgitation. TRICUSPID VALVE There is trace tricuspid valve regurgitation. PULMONARY VALVE The pulmonary valve is not well visualized. VESSELS The inferior vena cava is normal in size. PERICARDIUM No pericardial effusion. Volodymyr Chapa MD, FACC (Electronically Signed) Final Date:22 May 2017 16:58
[2017-05-22] MEDS: traZODone HCL 50 MG TAB PO SCH (19:58)
[2017-05-22] MEDS ORDERED: PHENobarbital INJ 1,000 MG in SODIUM CHLORIDE 0.9% INJ 100 ML IV ONE (20:00)
[2017-05-22] MEDS: ATORVASTATIN 10 MG TAB PO SCH (20:04)
[2017-05-23] VITALS (19 sets, daily range): BP systolic 100–150; BP diastolic 54–67; PULSE 52–74; RESP 14–34; TEMP 93.3–98.2; O2SAT 94–99
[2017-05-23] MEDS: methylPREDNISolone SOD SUCC 40 MG/1 ML VIAL IV PUSH SCH ×2 (01:39→12:00)
[2017-05-23] MEDS: RESP: ALBUTEROL 2.5 MG/IPRATROPIUM 0.5 MG NEB (SCH) NEB ×6 (03:21→23:13)
[2017-05-23] MEDS: CHLORHEXIDINE GLUCONATE 2 % 1 PACK (2 CLOTHS)(taper/protocol) TOPICAL SCH (03:58)
[2017-05-23] MEDS: NITROGLYCERIN 2% OINT 1 GM PACKET TOP SCH ×3 (07:13→12:00)
[2017-05-23] MEDS: chlordiazePOXIDE 25 MG CAP PO SCH ×2 (07:13→12:00)
[2017-05-23] MEDS: methylPREDNISolone SOD SUCC 125 MG/2 ML VIAL IV PUSH SCH ×3 (07:15→22:04)
[2017-05-23 07:16] LABS: HEMATOCRIT 34.8 % (39.0-51.0); MEAN CELL VOLUME 96.1 FL (80.0-100.0); MEAN CORPUSCULAR HGB CONC 33.3 % (32.0-36.0); PLATELET COUNT 93 TH/MM3 (150-450); RED BLOOD COUNT 3.62 MIL/MM3 (4.50-5.90); RED CELL DISTRIBUTION WIDTH 14.3 % (11.6-17.2); WHITE BLOOD COUNT 5.4 TH/MM3 (4.0-11.0)
[2017-05-23 07:32] LABS: REVIEW FLAG FINAL
[2017-05-23] MEDS: guaiFENesin E.R. 600 MG TAB PO SCH ×2 (09:00→21:00)
[2017-05-23] MEDS: METOPROLOL TARTRATE 25 MG TAB PO SCH ×3 (09:00→22:03)
[2017-05-23] MEDS: PROPRANOLOL HCL 10 MG TAB PO SCH ×3 (09:00→22:02)
[2017-05-23] MEDS: BUDESONIDE-FORMOTEROL 160/4.5 MCG INHALER INH SCH ×2 (09:00→21:00)
[2017-05-23] MEDS: SODIUM CHLORIDE 0.9% FLUSH 10 ML FLUSH IV FLUSH SCH ×2 (09:00→21:00)
[2017-05-23] MEDS: LISINOPRIL 5 MG TAB PO SCH ×2 (09:00→11:24)
[2017-05-23] MEDS: HEPARIN SODIUM - SQ 10,000 UNITS/ML VIAL SQ SCH ×2 (09:00→22:03)
[2017-05-23] MEDS: SODIUM CHLOR 0.9% 1000 ML INJ 1,000 ML IV SCH ×2 (09:20→22:02)
[2017-05-23] MEDS: THIAMINE IV SCH (11:23)
[2017-05-23] MEDS: SODIUM CHLOR 0.45% IV SCH (11:23)
[2017-05-23] MEDS: MULTIVITAMIN IV SCH (11:23)
[2017-05-23] MEDS: FOLIC ACID 1 MG TAB PO SCH (11:24)
[2017-05-23] MEDS: QUEtiapine FUMARATE 25 MG TAB PO SCH (11:25)
[2017-05-23] MEDS: THIAMINE HCL 100 MG TAB PO SCH (11:25)
[2017-05-23] MEDS: PARoxetine HCL 20 MG TAB PO SCH (11:26)
[2017-05-23] MEDS: FAMOTIDINE 20 MG TAB PO SCH ×2 (11:26→22:03)
--- NOTE | 2017-05-23 13:04 | HHI.CCPN ---
Subjective Remarks/Hospital Course 05/21: Patient is a 67-year-old male with past medical history of COPD, alcohol dependence, PTSD, anxiety, hypertension was initially brought to the [place] emergency department for altered mental status and agitation. Patient has a history of heavy alcohol use more than 6 beers in addition to Rum. Apparently he quit or reduced drinking 2 days ago. Patient was transferred to the main campus due to elevated mildly elevated troponin. Patient was admitted to the ICU by hospitalist for severe alcohol withdrawal and mildly elevated troponin was placed on CIWA protocol. Dr. Walls was consulted for cardiology and patient was placed on IV heparin and aspirin along with beta blockers. This was not deemed ACS Critical care medicine was consulted as patient was found to be progressively and severely agitated and uncooperative and becoming a threat to himself and others. On my evaluation he is unable to give any history and was in severe withdrawal and agitated. He has pulled out his right peripheral IV and is bleeding from the site. I have ordered a stat Ativan 2 mg IV 1 and placed on Precedex infusion. Will also place him on scheduled Librium 50 mg by mouth every 8 hours after placing an NG tube. Supplement multivitamin and thiamine. If his severe withdrawal symptoms are not controlled he may need endotracheal intubation and continuous heavy IV sedation 05/22: Patient on Precedex overnight. Has received Librium and appears to be drowsy currently. 05/23: Received 1 g of phenobarbital yesterday for extreme agitation by Dr. Manuel. Resumed on Precedex yesterday for agitation. Currently on Librium and drowsy. Objective Vital Signs Date Time Temp Pulse Resp B/P (MAP) Pulse Ox O2 Delivery O2 Flow Rate FiO2 05/23/17 08:05 98 Nasal Cannula 2.00 05/23/17 06:00 62 05/23/17 04:00 93.3 14 144/65 (91) Intake and Output 05/23/17 05/23/17 05/24/17 08:00 16:00 00:00 Output Total 700 ml Balance -700 ml Result Diagram: 05/23/17 0557 05/21/17 0326 Imaging CXR no acute infiltrate Objective Remarks GENERAL: 67 yo male laying in bed, not in any acute distress SKIN: Cool and dry. Bleeding from R hand PIV historical site guide: Atraumatic. Normocephalic. No temporal or scalp tenderness. EYES: Positive pallor, no icterus ENT: Unable to examine oral cavity. NG tube in place NECK: Trachea midline. No JVD or lymphadenopathy. CARDIOVASCULAR: Tachycardic rate and rhythm without murmurs, gallops, or rubs. RESPIRATORY: Good air entry bilaterally scattered rhonchi, no wheezing GASTROINTESTINAL: Abdomen soft, non-tender, nondistended. MUSCULOSKELETAL: Extremities without clubbing, cyanosis, or edema. NEUROLOGICAL: Drowsy, sedated with Precedex, grossly nonfocal A/P Assessment and Plan NEURO: Severe alcohol withdrawal Acute encephalopathy Alcohol dependence PTSD/anxiety -Continue Precedex at 0.5 g per KG per hour titrated to maximum dose 2 g per kg per hour temporarily and then keep maximum dose at 1.6 mcg/kg/hr. Currently at 1 crista per KG per hour. - Librium 50 q8h. Continue Ativan per CIWA protocol RESP: Acute COPD exacerbation Respiratory insufficiency Tobacco abuse - Nasal cannula oxygen. - Airway protection is questionable with increased sedation, may need endotracheal intubation and mechanical ventilation - DuoNeb every 4 hours scheduled and when necessary - IV Solu-Medrol 60 mg every 6 hours CV: Mild troponin elevation - Normal saline 84 ml per hour - Cardiology Dr. Walls - Continue aspirin, IV heparin discontinued, started subcutaneous heparin - Continue metoprolol GI: -Start tube feeds with Glucerna 1.5 at 30 cc an hour on 05/23 and if tolerated will consider advancing tomorrow. IV famotidine : - Monitor renal function closely. Place Gonsalez catheter due urinary retention ID: - Monitor without antibiotics HEME: - Monitor CBC, CMP, coags ENDO: - Electrolyte replacement protocol PROPH: - Bilateral lower extremity SCDs. Heparin, famotidine LINES: - Utilize peripheral IVs, central line if needed on 05/22 I updated patient's regarding current clinical status and plan of care and she voiced understanding. Condition remains critical with severe delirium tremens on Precedex drip currently. Time spent on critical care excluding procedures 30 minutes Alvarado Lord MD May 23, 2017 13:04
[2017-05-23] MEDS: ASPIRIN 325 MG TAB PO SCH (17:35)
[2017-05-23] MEDS: ATORVASTATIN 10 MG TAB PO SCH (22:02)
[2017-05-23] MEDS: traZODone HCL 50 MG TAB PO SCH (22:03)
[2017-05-24] VITALS (19 sets, daily range): BP systolic 143–172; BP diastolic 64–77; PULSE 50–60; RESP 23–29; TEMP 97–97.5; O2SAT 88–100
[2017-05-24] MEDS: DEXMEDETOMIDINE INJ 1,000 MCG in SODIUM CHLOR 0.9% 250 ML INJ 240 ML IV PRN ×3 (00:22→20:46)
[2017-05-24] MEDS: RESP: ALBUTEROL 2.5 MG/IPRATROPIUM 0.5 MG NEB (SCH) NEB ×7 (03:23→23:43)
[2017-05-24] MEDS: CHLORHEXIDINE GLUCONATE 2 % 1 PACK (2 CLOTHS)(taper/protocol) TOPICAL SCH (04:30)
[2017-05-24] MEDS: chlordiazePOXIDE 25 MG CAP PO SCH ×4 (06:00→20:03)
[2017-05-24] MEDS: NITROGLYCERIN 2% OINT 1 GM PACKET TOP SCH ×4 (06:00→17:36)
[2017-05-24] MEDS: methylPREDNISolone SOD SUCC 40 MG/1 ML VIAL IV PUSH SCH ×3 (06:00→17:37)
[2017-05-24] MEDS: methylPREDNISolone SOD SUCC 125 MG/2 ML VIAL IV PUSH SCH (06:00)
[2017-05-24] MEDS ORDERED: DEXTROSE 50% IN WATER 50 ML SYRINGE ONE ×2 (08:06→08:07)
[2017-05-24] MEDS ORDERED: SODIUM CHLORIDE 23.4% INJ 154 MEQ in DEXTROSE 10% INJ 1,000 ML IV SCH (08:15)
[2017-05-24] MEDS: LISINOPRIL 5 MG TAB PO SCH (08:19)
[2017-05-24] MEDS: METOPROLOL TARTRATE 25 MG TAB PO SCH ×2 (08:19→20:04)
[2017-05-24] MEDS: PARoxetine HCL 20 MG TAB PO SCH (08:19)
[2017-05-24] MEDS: guaiFENesin E.R. 600 MG TAB PO SCH ×2 (08:19→20:05)
[2017-05-24] MEDS: FAMOTIDINE 20 MG TAB PO SCH ×2 (08:19→20:05)
[2017-05-24] MEDS: ASPIRIN 325 MG TAB PO SCH (08:20)
[2017-05-24] MEDS: FOLIC ACID 1 MG TAB PO SCH (08:20)
[2017-05-24] MEDS: QUEtiapine FUMARATE 25 MG TAB PO SCH ×2 (08:20→20:05)
[2017-05-24] MEDS: SODIUM CHLORIDE 0.9% FLUSH 10 ML FLUSH IV FLUSH SCH ×2 (08:21→20:06)
[2017-05-24] MEDS: BUDESONIDE-FORMOTEROL 160/4.5 MCG INHALER INH SCH ×2 (08:21→20:09)
[2017-05-24] MEDS: THIAMINE HCL 100 MG TAB PO SCH (08:30)
[2017-05-24] MEDS: HEPARIN SODIUM - SQ 10,000 UNITS/ML VIAL SQ SCH (08:30)
[2017-05-24] MEDS: PROPRANOLOL HCL 10 MG TAB PO SCH ×2 (08:30→20:04)
[2017-05-24 10:34] LABS: APTT (PATIENT) 32.2 SEC (24.3-30.1); PROTHROMBIN TIME - PATIENT 11.6 SEC (9.8-11.6)
[2017-05-24] MEDS: SODIUM CHLOR 0.45% IV SCH (10:47)
[2017-05-24] MEDS: THIAMINE IV SCH (10:47)
[2017-05-24] MEDS: MULTIVITAMIN IV SCH (10:47)
[2017-05-24] MEDS: SODIUM CHLOR 0.9% 1000 ML INJ 1,000 ML IV SCH ×2 (10:47→21:26)
[2017-05-24 11:36] LABS: BASOPHIL % 0.1 % (0.0-2.0); HEMATOCRIT 34.4 % (39.0-51.0); LYMPHOCYTE # 0.2 TH/MM3 (1.0-4.8); MEAN CELL VOLUME 96.6 FL (80.0-100.0); MEAN CORPUSCULAR HGB CONC 33.1 % (32.0-36.0); MONO % 7.5 % (0.0-8.0); NEUT % 87.4 % (16.0-70.0); PLATELET COUNT 80 TH/MM3 (150-450); RED BLOOD COUNT 3.56 MIL/MM3 (4.50-5.90); RED CELL DISTRIBUTION WIDTH 14.5 % (11.6-17.2); WHITE BLOOD COUNT 4.6 TH/MM3 (4.0-11.0)
[2017-05-24 11:40] LABS: HEMO FLAGS AUTO DIFF
--- NOTE | 2017-05-24 12:30 | RADRPT ---
EXAM DATE/TIME: 05/24/2017 11:54 [facility] COMPARISON: CHEST SINGLE AP, May 20, 2017, 7:23. INDICATIONS : Evaluate for infiltrates. MEDICAL HISTORY : Hypertension. Chronic obstructive pulmonary disease. SURGICAL HISTORY : right carotid surgery ENCOUNTER: Initial ACUITY: 4 - 6 days PAIN SCORE: Non-responsive. LOCATION: Bilateral chest FINDINGS: There is been interval development of scattered infiltrates involving the left upper lung, left lower lung and right lung base compared to the prior examination. There is an NG tube in the stomach. Ther e is no pneumothorax. The heart size is stable. There may be small bilateral effusions present. No ev idence of pneumothorax. The bony structures appear to be stable. CONCLUSION: Interval development of scattered bilateral pulmonary infiltrates compared to the prior examination o f 05/20/2017. Emery Tello MD on May 24, 2017 at 12:27 Board Certified Radiologist. This report was verified electronically.
[2017-05-24 12:40] LABS: BANDS 22 % (0-6); NEUTROPHIL # MANUAL DIFF 4.1 TH/MM3 (1.8-7.7); PLATELET ESTIMATE SMEAR LOW (NORMAL); PLATELET MORPHOLOGY NORMAL (NORMAL); POLYS (SEG NEUTROPHILS) 67 % (16-70); SCAN/DIFF FINAL DIFF MANUAL; WBC DIFF SAMPLE 100
[2017-05-24 13:01] LABS: BICARBONATE 20.5 MEQ/L (21.0-32.0); CALCIUM-PROTEIN CORRECTED 8.3 MG/DL (8.5-10.1); TOTAL BILIRUBIN ADULT 0.6 MG/DL (0.2-1.0)
[2017-05-24 13:10] LABS: BLOOD GAS BASE EXCESS -6.4 mmol/L (-2-2); BLOOD GAS CARBOXYHEMOGLOBIN 0.7 % (0-4); BLOOD GAS HCO3 19 mmol/L (22-26); BLOOD GAS METHEMOGLOBIN 1.3 % (0-2); BLOOD GAS O2 HGB SATURATION 86 % (90-100); BLOOD GAS OXYGEN CONTENT 12.9 Vol % (12.0-20.0); BLOOD GAS PCO2 39 mmHg (38-42); BLOOD GAS PO2 62 mmHg (61-120); BLOOD GAS TOTAL HGB 10.6 G/DL (12.0-16.0); TEMP CORR TO 98.6
[2017-05-24 13:11] LABS: CRITICAL VALUE YES; DRAW SITE RT RADIAL; LITER FLOW 6 L/M; NUMBER OF ARTERIAL PUNCTURES 1; OXYGEN DEVICE NASAL CANNULA; STAT NO; ULNAR PULSE PRESENT
--- NOTE | 2017-05-24 13:27 | MB ---
cc: YENNY PEREZ M.D. DATE OF CONSULTATION: 05/24/2017 1949 REASON FOR CONSULTATION Encephalopathy. HISTORY OF PRESENT ILLNESS This is a 67-year-old man who was brought in by his spouse for change in mental status and agitation. He has a history of ethanol abuse, COPD, PTSD, and hypertension. MEDICATION Home medicines are: 1. Pro-Air. 2. Prednisone. 3. Ranitidine. 4. Vistaril. 5. Combivent. 6. Lisinopril. 7. Propranolol. 8. Trazodone. 9. Seroquel. 10. Paxil. SOCIAL HISTORY Drinks beer a six-pack and rum daily, nightly. Quit smoking in . No substance abuse reported. ALLERGIES GABAPENTIN AND LEVOFLOXACIN. PHYSICAL EXAMINATION VITAL SIGNS: Temperature is 97. His pulse is 53, respiratory rate 16. Last blood pressure was 111/56. He is on 6 liters now nasal cannula and he was at 88%. He now has a rebreather. He received 1 gram of phenobarbital yesterday for agitation, placed yesterday on Precedex and Librium. He is very drowsy. His pupils are reactive. He does not respond to verbal stimuli. He does withdraw to his feet with noxious stimuli. Does not follow any purposeful commands. His reflexes are blunted. He has some edema. LABORATORY DATA Hemoglobin 11.4, white count 4.6, platelets 80,000, ESR 6. Coag panel PTT is 32.2. Chemistries are pending for today but on the his sodium was 133, GFR 78, A1c 5.1, calcium 8.4, AST 40, ALT 32, B12 is 303, TSH and T4 were normal. Toxicology positive for benzos and 6 ethanol, phenobarbital level yesterday was 16.9. No MRSA detected on nasal swab. Serology RPR is nonreactive. CURRENT MEDICATIONS Currently he is on: 1. Seroquel. 2. Solu-Medrol. 3. Librium 50 mg q. 6. 4. Apresoline p.r.n. 5. Multivitamins. 6. Dexmedetomidine. 7. Folic acid. 8. Albuterol ipratropium. 9. Famotidine. 10. Lisinopril. 11. Paroxetine. 12. Trazodone. 13. Propranolol. IMAGING STUDIES The CT head was unremarkable. Chest x-ray today shows interval development of scattered bilateral pulmonary infiltrates compared to prior from 05/20/2017 scan. IMPRESSION Acute encephalopathy may be due to alcohol withdrawal, dependence. He has a history of PTSD, anxiety. Continue Librium, start weaning when feasible. For his respiratory distress, continue per senior applications engineer. He may need endotracheal intubation if decompensates, he is on DuoNebs and Solu-Medrol. Cardiology is monitoring his elevated troponin. He is on aspirin now, he is no longer on heparin, only subcu heparin. We will go ahead and get an EEG and continue to monitor neuro status araujo. At some point if there is no significant change consider MRI of the brain. Continue current care. Further recommendations will be made as needed. MD MARGIE King/TLL /12:54 PM /1:08 PM
[2017-05-24] MEDS ORDERED: SUCCINYLCHOLINE CHLORIDE 200 MG/10 ML VIAL ONE (13:36)
[2017-05-24] MEDS ORDERED: ETOMIDATE 40 MG/20 ML VIAL ONE (13:36)
[2017-05-24] MEDS ORDERED: ETOMIDATE 20 MG/10 ML VIAL IVP ONE (13:45)
[2017-05-24] MEDS ORDERED: PROPOFOL 1000 MG/100 ML INJ 100 ML IV PRN (13:45)
[2017-05-24] MEDS ORDERED: SUCCINYLCHOLINE CHLORIDE 200 MG/10 ML VIAL IV ONE (13:45)
--- NOTE | 2017-05-24 13:53 | HHI.CCPN ---
Subjective Remarks/Hospital Course 05/21: Patient is a 67-year-old male with past medical history of COPD, alcohol dependence, PTSD, anxiety, hypertension was initially brought to the [place] emergency department for altered mental status and agitation. Patient has a history of heavy alcohol use more than 6 beers in addition to Rum. Apparently he quit or reduced drinking 2 days ago. Patient was transferred to the main campus due to elevated mildly elevated troponin. Patient was admitted to the ICU by hospitalist for severe alcohol withdrawal and mildly elevated troponin was placed on CIWA protocol. Dr. Walls was consulted for cardiology and patient was placed on IV heparin and aspirin along with beta blockers. This was not deemed ACS Critical care medicine was consulted as patient was found to be progressively and severely agitated and uncooperative and becoming a threat to himself and others. On my evaluation he is unable to give any history and was in severe withdrawal and agitated. He has pulled out his right peripheral IV and is bleeding from the site. I have ordered a stat Ativan 2 mg IV 1 and placed on Precedex infusion. Will also place him on scheduled Librium 50 mg by mouth every 8 hours after placing an NG tube. Supplement multivitamin and thiamine. If his severe withdrawal symptoms are not controlled he may need endotracheal intubation and continuous heavy IV sedation 05/22: Patient on Precedex overnight. Has received Librium and appears to be drowsy currently. 05/23: Received 1 g of phenobarbital yesterday for extreme agitation by Dr. Manuel. Resumed on Precedex yesterday for agitation. Currently on Librium and drowsy. 05/24: Remains encephalopathic on Precedex. Chest x-ray done today shows left upper lobe infiltrate probably secondary to aspiration. We'll proceed with endotracheal intubation as patient appears not to be protecting airway currently in view of chest x-ray findings. LP ordered however cannot be done until Sunday as patient has been on aspirin. We will obtain alcantara cultures and start empiric antibiotics Objective Vital Signs Date Time Temp Pulse Resp B/P (MAP) Pulse Ox O2 Delivery O2 Flow Rate FiO2 05/24/17 12:36 88 Nasal Cannula 6.00 05/24/17 12:00 50 05/24/17 12:00 97.0 29 146/70 (95) Intake and Output 05/24/17 05/24/17 05/25/17 08:00 16:00 00:00 Output Total 350 ml Balance -350 ml Result Diagram: 05/24/17 1105 05/24/17 1105 Other Results Laboratory Tests Test 05/24/17 13:00 Blood Gas Puncture Site RT RADIAL Blood Gas Patient Temperature 98.6 Blood Gas HCO3 19 mmol/L (22-26) Blood Gas Base Excess -6.4 mmol/L (-2-2) Blood Gas Oxygen Saturation 86 % (90-100) Arterial Blood pH 7.31 (7.380-7.420) Arterial Blood Partial Pressure CO2 39 mmHg (38-42) Arterial Blood Partial Pressure O2 62 mmHg (61-120) Arterial Blood Oxygen Content 12.9 Vol % (12.0-20.0) Arterial Blood Carboxyhemoglobin 0.7 % (0-4) Arterial Blood Methemoglobin 1.3 % (0-2) Blood Gas Hemoglobin 10.6 G/DL (12.0-16.0) Oxygen Delivery Device NASAL CANNULA Blood Gas Liter Flow 6 L/M Imaging CXR no acute infiltrate Objective Remarks GENERAL: 67 yo male laying in bed, slightly tachypneic SKIN: Warm and dry HEAD: Atraumatic. Normocephalic. No temporal or scalp tenderness. EYES: Positive pallor, no icterus ENT: NG tube in place NECK: Trachea midline. No JVD or lymphadenopathy. CARDIOVASCULAR: Tachycardic rate and rhythm without murmurs, gallops, or rubs. RESPIRATORY: Good air entry bilaterally scattered rhonchi, no wheezing GASTROINTESTINAL: Abdomen soft, non-tender, nondistended. MUSCULOSKELETAL: Extremities without clubbing, cyanosis, or edema. NEUROLOGICAL: Drowsy, sedated with Precedex, grossly nonfocal. Not following commands A/P Assessment and Plan NEURO: Severe alcohol withdrawal Acute encephalopathy Alcohol dependence PTSD/anxiety -Continue Precedex at 0.5 g per KG per hour titrated to maximum dose 2 g per kg per hour temporarily and then keep maximum dose at 1.6 mcg/kg/hr. Currently at 1 crista per KG per hour. - Librium 50 q8h. Continue Ativan per CIWA protocol. - We will obtain EEG. LP ordered however to be done on Sunday per IR as patient has been on aspirin. Neurology consult requested for encephalopathy. RESP: Acute COPD exacerbation Respiratory insufficiency Aspiration pneumonia Tobacco abuse - Nasal cannula oxygen. - Airway protection is questionable with increased sedation, will proceed with endotracheal intubation and mechanical ventilation - DuoNeb every 4 hours scheduled and when necessary - IV Solu-Medrol 60 mg every 6 hours CV: Mild troponin elevation - Normal saline 84 ml per hour - Cardiology Dr. Walls - IV heparin discontinued, started subcutaneous heparin which was held for thrombocytopenia. Aspirin placed on hold for lumbar puncture - Continue metoprolol if BP tolerates GI: -Start tube feeds with Glucerna 1.5 at 30 cc an hour on 05/23 and advanced to goal if tolerated. IV famotidine : - Monitor renal function closely. Place Gonsalez catheter due urinary retention. ID: -Obtain pancultures including blood/urine/sputum cultures following intubation and will initiate empiric antibiotic coverage with IV Zosyn 4.5 g every 6 hourly on 05/24 to cover for aspiration pneumonia. HEME: - Monitor CBC, CMP, coags ENDO: - Electrolyte replacement protocol PROPH: - Bilateral lower extremity SCDs. Heparin, famotidine LINES: - Utilize peripheral IVs, central line if needed on 05/22 I updated patient's regarding current clinical status and plan of care and she voiced understanding. Condition remains critical with severe delirium tremens and now with aspiration pneumonia requiring endotracheal intubation for airway protection. Time spent on critical care excluding procedures 30 minutes Alvarado Lord MD May 24, 2017 13:52
--- NOTE | 2017-05-24 14:23 | PD.PROCEDR ---
Procedure Note Procedure Procedure: Endotracheal intubation Preop diagnosis: Aspiration pneumonia, acute respiratory failure, Postop diagnosis: Same Indication: Airway protection Sedation used: Etomidate 20 mg, succinylcholine 200 mg IV Procedure: Patient was preoxygenated with 100% oxygen via Ambu bag with bag mask ventilation, following induction of sedation and neuromuscular blockade, laryngoscopy was performed using a glide scope with good visualization of vocal cords. First attempt resulted in esophageal intubation hence ET tube was removed patient was ventilated with bag mask ventilation, laryngoscopy performed once again using a glide scope with good visualization of vocal cords and an 8 [place] Islander ET tube was passed through the vocal cords under direct visualization up to the 23 centimeter akash and after inflating cuff of ET tube, correct placement was confirmed using bagging with good color change on CO2 detector, 5 point auscultation and chest rise with ventilation. Patient was connected to mechanical ventilation. Patient tolerated the procedure well with no immediate complications noted. Postprocedure chest x-ray was ordered. Alvarado Lord MD May 24, 2017 14:23
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
--- NOTE | 2017-05-24 15:02 | RADRPT ---
EXAM DATE/TIME: 05/24/2017 14:31 [facility] COMPARISON: CHEST SINGLE AP, May 24, 2017, 11:54. INDICATIONS : Post intubation. MEDICAL HISTORY : Hypertension. Chronic obstructive pulmonary disease. SURGICAL HISTORY : Right carotid artery. ENCOUNTER: Subsequent ACUITY: 1 day PAIN SCORE: Non-responsive. LOCATION: Bilateral chest FINDINGS: A single view of the chest demonstrates persistent airspace consolidation predominantly in the left l chelly with left basilar consolidation/effusion in the left upper lobe airspace process. These are both stable. Right basilar consolidation/effusion may be slightly improved when compared to the earlier ex am. The right lung remains normally aerated. There is some volume loss in the left hemithorax with needle position of the heart and mediastinum. N asogastric tube enters the stomach and extends off the inferior aspect of the film. Interval placemen t of an endotracheal tube with the tip at the clavicular heads. Osseous structures are intact with so me degenerative spurring of the dorsal spine. CONCLUSION: 1. Stable airspace consolidation in the left hemithorax with volume loss and a probable left-sided ef fusion. 2. Mild atelectatic changes and probable associated effusion the right base. This actually appears to be slightly improved when compared to the prior. 3. Interval intubation with the endotracheal tube position at the clavicular heads.. Kavon Beckman MD on May 24, 2017 at 14:57 Board Certified Radiologist. This report was verified electronically.
[2017-05-24 15:47] LABS: BLOOD GAS BASE EXCESS -7.3 mmol/L (-2-2); BLOOD GAS CARBOXYHEMOGLOBIN 0.2 % (0-4); BLOOD GAS HCO3 20 mmol/L (22-26); BLOOD GAS METHEMOGLOBIN 1.3 % (0-2); BLOOD GAS O2 HGB SATURATION 98 % (90-100); BLOOD GAS OXYGEN CONTENT 16.3 Vol % (12.0-20.0); BLOOD GAS PCO2 52 mmHg (38-42); BLOOD GAS PO2 465 mmHg (61-120); CRITICAL VALUE YES; DRAW SITE RT RADIAL; FIO2 100 %; NUMBER OF ARTERIAL PUNCTURES 1; OXYGEN DEVICE VENTILATOR; STAT NO; TEMP CORR TO 98.6; ULNAR PULSE PRESENT; VENT SETTINGS PRVC18/450/1.1/+8
[2017-05-24] MEDS: PIPERACIL-TAZO 4.5 GM PREMIX 100 ML IV SCH ×2 (15:49→20:05)
[2017-05-24] MEDS: RESP: ACETYLCYSTEINE 10% 30 ML NEB NEB SCH ×2 (17:00→23:42)
[2017-05-24] MEDS ORDERED: POTASSIUM PHOSPHATE INJ 30 MMOL in SODIUM CHLOR 0.9% 250 ML INJ 250 ML IV PRN (19:15)
[2017-05-24] MEDS ORDERED: SODIUM PHOSPHATE INJ 30 MMOL in SODIUM CHLOR 0.9% 250 ML INJ 240 ML IV PRN (19:15)
[2017-05-24] MEDS ORDERED: POTASSIUM CHLOR 40 MEQ PREMIX 100 ML IV PRN ×2 (19:15)
[2017-05-24] MEDS ORDERED: MAGNESIUM SULFATE INJ 4 GM in SODIUM CHLORIDE 0.9% INJ 92 ML IV PRN (19:15)
[2017-05-24] MEDS ORDERED: POTASSIUM CHLORIDE 25 MEQ EFFERVESCENT TAB PO ONE (19:15)
[2017-05-24] MEDS ORDERED: MAGNESIUM SULFATE INJ 2 GM in SODIUM CHLORIDE 0.9% INJ 96 ML IV PRN (19:15)
[2017-05-24] MEDS ORDERED: POTASSIUM CHLOR 20 MEQ PREMIX 100 ML IV PRN (19:15)
[2017-05-24] MEDS ORDERED: POTASSIUM PHOSPHATE MONOBASIC 500 MG TAB PO/TUBE PRN (19:15)
[2017-05-24] MEDS ORDERED: POTASSIUM CHLORIDE 25 MEQ EFFERVESCENT TAB PO PRN (19:15)
[2017-05-24] MEDS ORDERED: POTASSIUM PHOSPHATE MONOBASIC 500 MG TAB PO PRN (19:15)
[2017-05-24] MEDS ORDERED: MAGNESIUM OXIDE 400 MG TAB PO PRN (19:15)
[2017-05-24] MEDS: ATORVASTATIN 10 MG TAB PO SCH (20:03)
[2017-05-24] MEDS: traZODone HCL 50 MG TAB PO SCH (20:03)
[2017-05-24] MEDS: CHLORHEXIDINE 0.12% (ORAL KIT) 15 ML CUP MT SCH (20:09)
[2017-05-24] MEDS: POTASSIUM CHLOR 20 MEQ PREMIX 100 ML IV PRN ×2 (21:26→23:30)
[2017-05-25] VITALS (17 sets, daily range): BP systolic 85–123; BP diastolic 50–64; PULSE 65–93; RESP 25–36; TEMP 96.5–99.8; O2SAT 93–100
[2017-05-25] MEDS: NITROGLYCERIN 2% OINT 1 GM PACKET TOP SCH ×2 (00:24→05:31)
[2017-05-25] MEDS: POTASSIUM CHLOR 20 MEQ PREMIX 100 ML IV PRN ×2 (02:46→05:11)
[2017-05-25] MEDS: RESP: ALBUTEROL 2.5 MG/IPRATROPIUM 0.5 MG NEB (SCH) NEB ×5 (03:46→19:40)
[2017-05-25] MEDS: CHLORHEXIDINE GLUCONATE 2 % 1 PACK (2 CLOTHS)(taper/protocol) TOPICAL SCH (04:00)
[2017-05-25] MEDS: PIPERACIL-TAZO 4.5 GM PREMIX 100 ML IV SCH ×4 (04:36→22:03)
[2017-05-25] MEDS ORDERED: SODIUM CHLOR 0.9% 1000 ML INJ 1,000 ML IV ONE (05:15)
[2017-05-25] MEDS ORDERED: SODIUM CHLORID 0.9% 500 ML INJ 500 ML IV ONE (05:30)
[2017-05-25] MEDS: methylPREDNISolone SOD SUCC 40 MG/1 ML VIAL IV PUSH SCH ×2 (05:30→17:46)
[2017-05-25] MEDS: DEXMEDETOMIDINE INJ 1,000 MCG in SODIUM CHLOR 0.9% 250 ML INJ 240 ML IV PRN ×2 (05:38→14:45)
[2017-05-25] MEDS: SODIUM CHLOR 0.9% 1000 ML INJ 1,000 ML IV SCH (06:19)
--- NOTE | 2017-05-25 07:33 | RADRPT ---
EXAM DATE/TIME: 05/25/2017 06:33 [facility] COMPARISON: CHEST SINGLE AP, May 24, 2017, 14:31. INDICATIONS : Respiratory failure, short of breath MEDICAL HISTORY : Hypertension. Chronic obstructive pulmonary disease. SURGICAL HISTORY : Carotid endarterectomy. ENCOUNTER: Subsequent ACUITY: 2 days PAIN SCORE: Non-responsive. LOCATION: Bilateral chest FINDINGS: Significant improvement in lung aeration is identified in the left upper lobe with clearing airspace disease. Bibasilar airspace disease remains evident. Endotracheal is in good position. NG tip has been partially pulled back and is now at the gastroesoph ageal junction. CONCLUSION: 1. Improved h with clearing left upper lobe airspace disease. 2. Persistent bibasilar airspace disease. 3. NG has been pulled back with its tip at the gastroesophageal junction. Cholo Mustafa MD on May 25, 2017 at 7:27 Board Certified Radiologist. This report was verified electronically.
[2017-05-25] MEDS: RESP: ACETYLCYSTEINE 10% 30 ML NEB NEB SCH ×2 (07:35→17:41)
[2017-05-25] MEDS: BUDESONIDE-FORMOTEROL 160/4.5 MCG INHALER INH SCH ×2 (07:36→21:00)
[2017-05-25] MEDS: CHLORHEXIDINE 0.12% (ORAL KIT) 15 ML CUP MT SCH ×2 (08:00→22:04)
[2017-05-25] MEDS: FAMOTIDINE 20 MG TAB PO SCH ×2 (08:06→21:00)
[2017-05-25] MEDS: PARoxetine HCL 20 MG TAB PO SCH (08:07)
[2017-05-25] MEDS: FOLIC ACID 1 MG TAB PO SCH (08:07)
[2017-05-25] MEDS: QUEtiapine FUMARATE 25 MG TAB PO SCH (08:07)
[2017-05-25] MEDS: chlordiazePOXIDE 25 MG CAP PO SCH (08:17)
[2017-05-25] MEDS: SODIUM CHLORIDE 0.9% FLUSH 10 ML FLUSH IV FLUSH SCH ×2 (08:18→22:04)
[2017-05-25] MEDS: THIAMINE HCL 100 MG TAB PO SCH (08:18)
[2017-05-25] MEDS ORDERED: DEXTROSE 50% IN WATER 50 ML VIAL(D50) IV PUSH PRN (08:30)
[2017-05-25] MEDS ORDERED: GLUCAGON 1 MG/ML VIAL OTHER PRN (08:30)
--- NOTE | 2017-05-25 08:32 | HHI.CCPN ---
Subjective Remarks/Hospital Course 05/21: Patient is a 67-year-old male with past medical history of COPD, alcohol dependence, PTSD, anxiety, hypertension was initially brought to the [facility] emergency department for altered mental status and agitation. Patient has a history of heavy alcohol use more than 6 beers in addition to Rum. Apparently he quit or reduced drinking 2 days ago. Patient was transferred to the main campus due to elevated mildly elevated troponin. Patient was admitted to the ICU by hospitalist for severe alcohol withdrawal and mildly elevated troponin was placed on CIWA protocol. Dr. Walls was consulted for cardiology and patient was placed on IV heparin and aspirin along with beta blockers. This was not deemed ACS Critical care medicine was consulted as patient was found to be progressively and severely agitated and uncooperative and becoming a threat to himself and others. On my evaluation he is unable to give any history and was in severe withdrawal and agitated. He has pulled out his right peripheral IV and is bleeding from the site. I have ordered a stat Ativan 2 mg IV 1 and placed on Precedex infusion. Will also place him on scheduled Librium 50 mg by mouth every 8 hours after placing an NG tube. Supplement multivitamin and thiamine. If his severe withdrawal symptoms are not controlled he may need endotracheal intubation and continuous heavy IV sedation 05/22: Patient on Precedex overnight. Has received Librium and appears to be drowsy currently. 05/23: Received 1 g of phenobarbital yesterday for extreme agitation by Dr. Manuel. Resumed on Precedex yesterday for agitation. Currently on Librium and drowsy. 05/24: Remains encephalopathic on Precedex. Chest x-ray done today shows left upper lobe infiltrate probably secondary to aspiration. We'll proceed with endotracheal intubation as patient appears not to be protecting airway currently in view of chest x-ray findings. LP ordered however cannot be done until Sunday as patient has been on aspirin. We will obtain alcantara cultures and start empiric antibiotics 05/25 Patient was intubated yesterday on Precedex drip for sedation. Given 1L bolus NS last night for hypotension. Tolerating tube feeds. T:99.8 Objective Vital Signs Date Time Temp Pulse Resp B/P (MAP) Pulse Ox O2 Delivery O2 Flow Rate FiO2 05/25/17 07:37 95 35 05/25/17 06:00 80 05/25/17 04:00 99.8 27 85/52 (63) 05/24/17 12:36 Nasal Cannula 6.00 Intake and Output 05/25/17 05/25/17 05/26/17 08:00 16:00 00:00 Intake Total 2594 ml Output Total 300 ml Balance 2294 ml Result Diagram: 05/24/17 1105 05/24/17 1105 Other Results Laboratory Tests Test 05/24/17 13:00 05/24/17 15:25 Blood Gas Puncture Site RT RADIAL RT RADIAL Blood Gas Patient Temperature 98.6 98.6 Blood Gas HCO3 19 mmol/L (22-26) 20 mmol/L (22-26) Blood Gas Base Excess -6.4 mmol/L (-2-2) -7.3 mmol/L (-2-2) Blood Gas Oxygen Saturation 86 % (90-100) 98 % (90-100) Arterial Blood pH 7.31 (7.380-7.420) 7.20 (7.380-7.420) Arterial Blood Partial Pressure CO2 39 mmHg (38-42) 52 mmHg (38-42) Arterial Blood Partial Pressure O2 62 mmHg (61-120) 465 mmHg (61-120) Arterial Blood Oxygen Content 12.9 Vol % (12.0-20.0) 16.3 Vol % (12.0-20.0) Arterial Blood Carboxyhemoglobin 0.7 % (0-4) 0.2 % (0-4) Arterial Blood Methemoglobin 1.3 % (0-2) 1.3 % (0-2) Blood Gas Hemoglobin 10.6 G/DL (12.0-16.0) 11.0 G/DL (12.0-16.0) Oxygen Delivery Device NASAL CANNULA VENTILATOR Blood Gas Liter Flow 6 L/M Blood Gas Ventilator Setting PRVC18/450/1.1/+8 Blood Gas Inspired Oxygen 100 % Imaging Last Impressions Chest X-Ray 05/25/17 0600 Signed Impressions: Service Date/Time: Thursday, May 25, 2017 06:33 - CONCLUSION: 1. Improved h with clearing left upper lobe airspace disease. 2. Persistent bibasilar airspace disease. 3. NG has been pulled back with its tip at the gastroesophageal junction. Cholo Mustafa MD Head CT 05/20/17 0712 Signed Impressions: Service Date/Time: Saturday, May 20, 2017 08:09 - CONCLUSION: Stable CT scan of the brain without evidence of acute infarct, hemorrhage, mass or edema. Cholo Mustafa MD Objective Remarks GENERAL: Patient is 67 yo intubated and sedated. SKIN: Warm and dry. HEAD: Normocephalic. EYES: No scleral icterus. No injection or drainage. NECK: Supple, trachea midline. No JVD or lymphadenopathy. CARDIOVASCULAR: Regular rate and rhythm without murmurs, gallops, or rubs. RESPIRATORY: Breath sounds equal bilaterally. No accessory muscle use. GASTROINTESTINAL: Abdomen soft, non-tender, nondistended. MUSCULOSKELETAL: No cyanosis, or edema. Neuro: sedated. A/P Assessment and Plan NEURO: Alcohol withdrawal Acute encephalopathy Alcohol dependence PTSD/anxiety -On Precedex drip for agitation/sedation. Monitor neuro status. Hold Librium, Seroquel, Trazadone. -Continue Ativan per [facility] protocol. - LP ordered however to be done on Sunday per IR as patient has been on aspirin. Neurology consult requested for encephalopathy. -EEG showed mild diffuse encephalopathy -CT brain 05/20 : No acute findings. Check MRI brain RESP: Acute COPD exacerbation Respiratory insufficiency Aspiration pneumonia Tobacco abuse - Continue with vent support keep st >92% - DuoNeb every 4 hours scheduled and when necessary. ICU vent bundle, Mucomyst - IV Solu-Medrol 40 mg Q12 -CXR today- improved aeration AG. CV: Mild troponin elevation - Monitor HR and BP keep MAP>65mmHg - Cardiology Dr. Walls -Echo showed EF 60-65% GI: - IV famotidine -Continue tube feeds- Jevity 1.5 @60ml/hr. : - Monitor renal function, I/O's, electrolytes replacement per protocol. -Will need K replacement today. d/c IVF ID: -Continue abx(V Zosyn 4.5 g every 6 hourly)for aspiration pneumonia.Monitor for signs of infections ( Fever, WBC) Follow up on BC and sputum cx from 05/24. Check strep pneumonia and Legionella urinary Ag HEME: - Monitor CBC, CMP, coags, Check HIT ab ENDO: - SSI for glycemic control PROPH: - Bilateral lower extremity SCDs. famotidine LINES: - Utilize peripheral IVs, central line if needed Level 3 Antonio Mtahias MD May 25, 2017 08:32
[2017-05-25 08:53] LABS: BLOOD GAS BASE EXCESS -7.5 mmol/L (-2-2); BLOOD GAS CARBOXYHEMOGLOBIN 0.6 % (0-4); BLOOD GAS HCO3 16 mmol/L (22-26); BLOOD GAS METHEMOGLOBIN 1.5 % (0-2); BLOOD GAS O2 HGB SATURATION 93 % (90-100); BLOOD GAS OXYGEN CONTENT 14.4 Vol % (12.0-20.0); BLOOD GAS PCO2 26 mmHg (38-42); BLOOD GAS PO2 79 mmHg (61-120); BLOOD GAS TOTAL HGB 10.9 G/DL (12.0-16.0); CRITICAL VALUE YES; OXYGEN DEVICE VENTILATOR; TEMP CORR TO 98.6
[2017-05-25 08:54] LABS: DRAW SITE RT RADIAL; FIO2 35 %; NUMBER OF ARTERIAL PUNCTURES 1; STAT NO; ULNAR PULSE PRESENT; VENT SETTINGS PRVC24/450/0.9/+5
[2017-05-25] MEDS: INSULIN NovoLIN REGULAR SUPPLEMENTAL SCALE SQ SCH ×4 (09:00→21:00)
[2017-05-25 11:05] LABS: BASOPHIL % 0.1 % (0.0-2.0); HEMATOCRIT 32.7 % (39.0-51.0); LYMPH % 4.1 % (9.0-44.0); LYMPHOCYTE # 0.2 TH/MM3 (1.0-4.8); MEAN CELL VOLUME 96.2 FL (80.0-100.0); MEAN CORPUSCULAR HEMOGLOBIN 32.7 PG (27.0-34.0); MONO % 4.3 % (0.0-8.0); NEUT % 91.5 % (16.0-70.0); PLATELET COUNT 70 TH/MM3 (150-450); RED BLOOD COUNT 3.39 MIL/MM3 (4.50-5.90); RED CELL DISTRIBUTION WIDTH 14.5 % (11.6-17.2); WHITE BLOOD COUNT 5.4 TH/MM3 (4.0-11.0)
[2017-05-25 11:15] LABS: HEMO FLAGS AUTO DIFF
[2017-05-25 11:40] LABS: BICARBONATE 19.7 MEQ/L (21.0-32.0); CALCIUM-PROTEIN CORRECTED 8.1 MG/DL (8.5-10.1); POTASSIUM 4.2 MEQ/L (3.5-5.1); TOTAL BILIRUBIN ADULT 0.6 MG/DL (0.2-1.0)
[2017-05-25 12:47] LABS: BANDS 26 % (0-6); CORRECTED NUCLEATED RBC 1 /100 WBC (0-0); METAMYELOCYTES 2 % (0-1); MYELOCYTES 3 % (0-0); NEUTROPHIL # MANUAL DIFF 4.5 TH/MM3 (1.8-7.7); PLATELET ESTIMATE SMEAR LOW (NORMAL); PLATELET MORPHOLOGY NORMAL (NORMAL); POLYS (SEG NEUTROPHILS) 52 % (16-70); SCAN/DIFF FINAL DIFF MANUAL; TOXIC GRANULATION 1+ (NORMAL); WBC DIFF SAMPLE 100
[2017-05-25 12:48] LABS: OVALOCYTES 1+ (NORMAL)
[2017-05-25] MEDS: LACTULOSE SYRUP 20 GM/30 ML CUP PO SCH ×2 (14:42→21:00)
[2017-05-25] MEDS: ATORVASTATIN 10 MG TAB PO SCH (21:00)
--- NOTE | 2017-05-25 22:22 | RADRPT ---
EXAM DATE/TIME: 05/25/2017 20:54 [facility] COMPARISON: CHEST SINGLE AP, May 25, 2017, 6:33. INDICATIONS : Confirm tube placement. MEDICAL HISTORY : Hypertension. Chronic obstructive pulmonary disease. SURGICAL HISTORY : Carotid endarterectomy. ENCOUNTER: Subsequent ACUITY: 1 day PAIN SCORE: Non-responsive. LOCATION: Bilateral chest FINDINGS: The ET tube tip is 3 cm from the hugo. There is an NG tube in place with its tip directed into the stomach. The heart size is normal. There is hazy density at the bases bilaterally being more prominen t on the right. Mid and upper lungs are clear. CONCLUSION: 1. ET tube and NG tube in good position. 2. Bibasilar areas of consolidation or atelectasis being worse on the right. Michael Hoang MD on May 25, 2017 at 22:20 Board Certified Radiologist. This report was verified electronically.
[2017-05-25 23:30] LABS: URINE COLOR YELLOW (YELLW/STRAW)
[2017-05-25 23:31] LABS: BLOOD, URINE MOD (NEG); GLUCOSE,URINE TRACE mg/dL (NEG); KETONE, URINE TRACE mg/dL (NEG); NITRITE,URINE NEG (NEG)
[2017-05-25 23:46] LABS: RBC, URINE 15-19 /hpf (0-3); SQUAMOUS EPITHELIAL CELL URINE 0-5 /hpf (0-5); WBC, URINE 0-2 /hpf (0-5)
[2017-05-25 23:47] LABS: COMMENT (UR) CATH-CULT NOT IND; CULTURE IF INDICATED CATH CULTURE NOT IND
[2017-05-26] VITALS (11 sets, daily range): BP systolic 74–133; BP diastolic 46–61; PULSE 89–127; RESP 7–42; TEMP 96.6–99.3; O2SAT 89–99
[2017-05-26] MEDS: DEXMEDETOMIDINE INJ 1,000 MCG in SODIUM CHLOR 0.9% 250 ML INJ 240 ML IV PRN (00:10)
[2017-05-26] MEDS: RESP: ALBUTEROL 2.5 MG/IPRATROPIUM 0.5 MG NEB (SCH) NEB ×4 (00:46→10:43)
[2017-05-26] MEDS: INSULIN NovoLIN REGULAR SUPPLEMENTAL SCALE SQ SCH ×3 (01:00→08:00)
[2017-05-26 01:23] LABS: BLOOD GAS BASE EXCESS -12.8 mmol/L (-2-2); BLOOD GAS CARBOXYHEMOGLOBIN 0.5 % (0-4); BLOOD GAS HCO3 12 mmol/L (22-26); BLOOD GAS METHEMOGLOBIN 1.3 % (0-2); BLOOD GAS O2 HGB SATURATION 91 % (90-100); BLOOD GAS OXYGEN CONTENT 19.2 Vol % (12.0-20.0); BLOOD GAS PCO2 23 mmHg (38-42); BLOOD GAS PO2 72 mmHg (61-120); BLOOD GAS TOTAL HGB 15.1 G/DL (12.0-16.0); CRITICAL VALUE YES; OXYGEN DEVICE VENTILATOR; TEMP CORR TO 98.6
[2017-05-26 01:24] LABS: DRAW SITE RT RADIAL; FIO2 35 %; NUMBER OF ARTERIAL PUNCTURES 1; STAT NO; ULNAR PULSE PRESENT; VENT SETTINGS PRVC/AC
[2017-05-26] MEDS ORDERED: SODIUM CHLOR 0.9% 1000 ML INJ 1,000 ML IV ONE ×2 (02:00)
[2017-05-26] MEDS ORDERED: NOREPINEPHRINE-DEXTROSE DRIP 250 ML IV PRN (02:00)
[2017-05-26] MEDS ORDERED: TERBUTALINE INJ 1 MG/ML AMP SQ PRN (02:00)
[2017-05-26] MEDS ORDERED: Vancomycin Consult Pharmacy 1 EA OTHER SCH (02:15)
[2017-05-26] MEDS ORDERED: metroNIDAZOLE 500 MG INJ 100 ML IV SCH ×2 (02:30→03:00)
[2017-05-26] MEDS ORDERED: VANCOMYCIN INJ 1,750 MG in SODIUM CHLORID 0.9% 500 ML INJ 500 ML IV ONE (02:30)
--- NOTE | 2017-05-26 03:02 | PD.PROCEDR ---
Procedure Note Procedure DATE: 05/26/17 CENTRAL LINE PLACEMENT: Right subclavian vein. INDICATION: Central venous access CONSENT Procedure was done emergently as patient is in shock and in need of central venous access, with poor peripheral access DESCRIPTION OF THE PROCEDURE Soares was trimmed and shaved to facilitate sterile procedure. The patient was placed in supine position, mild Trendelenburg. The skin was cleansed with Chloraprep 3. Additional barrier precautions included large sterile drape, sterile gloves, sterile gown, face mask, and hat. 1 % lidocaine was used for local anesthesia. On second attempt, the vein was accessed with an introducer needle. The guide wire was advanced and the tract was dilated. Using Seldinger technique a 7 [place] 20 cm antimicrobial coated triple-lumen catheter was advanced to a depth of 16 centimeters. The guide wire was removed. All ports had good return of dark venous blood and flushed easily with saline. The central line was secured with Stat lock. A sterile dressing with antibiotic disc was applied. ESTIMATED BLOOD LOSS: Minimal COMPLICATIONS: No apparent complications. STAT chest x-ray is pending Maile Bond MD May 26, 2017 03:02
[2017-05-26] MEDS ORDERED: DIATRIZOATE MEGLUM/DIATRIZOATE SOD 9 ML CUP PO ONE (03:06)
[2017-05-26] MEDS: PIPERACIL-TAZO 4.5 GM PREMIX 100 ML IV SCH ×2 (03:25→08:38)
[2017-05-26 03:30] LABS: BASOPHIL % 0.2 % (0.0-2.0); EOSINOPHIL % 0.1 % (0.0-4.0); HEMATOCRIT 37.9 % (39.0-51.0); LYMPH % 5.3 % (9.0-44.0); LYMPHOCYTE # 0.7 TH/MM3 (1.0-4.8); MEAN CELL VOLUME 97.1 FL (80.0-100.0); MEAN CORPUSCULAR HEMOGLOBIN 31.8 PG (27.0-34.0); MEAN CORPUSCULAR HGB CONC 32.7 % (32.0-36.0); MONO % 9.8 % (0.0-8.0); NEUT % 84.6 % (16.0-70.0); PLATELET COUNT 102 TH/MM3 (150-450); RED CELL DISTRIBUTION WIDTH 15.2 % (11.6-17.2); WHITE BLOOD COUNT 14.2 TH/MM3 (4.0-11.0)
[2017-05-26] MEDS ORDERED: fentaNYL DRIP 250 ML IV PRN (03:30)
[2017-05-26 03:36] LABS: HEMO FLAGS AUTO DIFF
[2017-05-26 03:46] LABS: BLOOD, URINE MOD (NEG); GLUCOSE,URINE TRACE mg/dL (NEG); KETONE, URINE TRACE mg/dL (NEG); NITRITE,URINE NEG (NEG); PH, URINE 6.5 (5.0-8.5)
[2017-05-26 03:50] LABS: URINE COLOR DARK-BROWN (YELLW/STRAW)
[2017-05-26 03:56] LABS: WBC, URINE 0-2 /hpf (0-5)
[2017-05-26 03:57] LABS: BACTERIA, URINE RARE /hpf; COMMENT (UR) CATH-CULTURE IND; CULTURE IF INDICATED CATH CULTURE IND; SQUAMOUS EPITHELIAL CELL URINE 0-5 /hpf (0-5)
[2017-05-26 04:07] LABS: ALKALINE PHOSPHATASE 34 U/L (45-117); ALT (GPT) 52 U/L (12-78); AST (GOT) 79 U/L (15-37); BLOOD UREA NITROGEN 35 MG/DL (7-18); CALCIUM-PROTEIN CORRECTED 7.7 MG/DL (8.5-10.1); GLOMERULAR FILTRATION RATE 42 ML/MIN (>89); MAGNESIUM 2.2 MG/DL (1.5-2.5); TOTAL BILIRUBIN ADULT 0.6 MG/DL (0.2-1.0)
[2017-05-26 04:08] LABS: ANION GAP 10 MEQ/L (5-15); BICARBONATE 16.2 MEQ/L (21.0-32.0); CHLORIDE 121 MEQ/L (98-107); POTASSIUM 4.2 MEQ/L (3.5-5.1); SODIUM (NA) 147 MEQ/L (136-145)
[2017-05-26 04:28] LABS: BANDS 27 % (0-6); CORRECTED NUCLEATED RBC 4 /100 WBC (0-0); METAMYELOCYTES 12 % (0-1); MYELOCYTES 1 % (0-0); NEUTROPHIL # MANUAL DIFF 12.2 TH/MM3 (1.8-7.7); POLYS (SEG NEUTROPHILS) 46 % (16-70); WBC DIFF SAMPLE 100
[2017-05-26 04:31] LABS: KERATOCYTES OCC (NORMAL); PLATELET ESTIMATE SMEAR LOW (NORMAL); PLATELET MORPHOLOGY NORMAL (NORMAL); SCAN/DIFF FINAL DIFF MANUAL
[2017-05-26 05:16] LABS: LACTIC ACID GHOST NOT REPORTABLE
[2017-05-26] MEDS: methylPREDNISolone SOD SUCC 40 MG/1 ML VIAL IV PUSH SCH (05:36)
--- NOTE | 2017-05-26 05:48 | RADRPT ---
EXAM DATE/TIME: 05/26/2017 03:13 [facility] COMPARISON: CHEST SINGLE AP, May 25, 2017, 20:54. INDICATIONS : Central Line placement MEDICAL HISTORY : Hypertension. Chronic obstructive pulmonary disease. SURGICAL HISTORY : Carotid Endardectomy ENCOUNTER: Subsequent ACUITY: 2 days PAIN SCORE: Non-responsive. LOCATION: Bilateral chest FINDINGS: ET tube tip over the hugo. Right subclavian catheter tip projects in the proximal superior vena ca va. STT traverses the [id number]. No evidence pneumothorax. Bilateral areas of consolidation medial left lower lungs bilaterally close loss of delineation portions the medial hemidiaphragms. There is also hazy opacity in right lower l hcelly suggesting pleural effusion. CONCLUSION: 1. Right subclavian catheter tip in the proximal superior vena cava. No evidence of pneumothorax. 2. Bilateral lower lung consolidation. Anuel Mccoy MD on May 26, 2017 at 5:45 Board Certified Radiologist. This report was verified electronically.
[2017-05-26] MEDS ORDERED: IODIXANOL 320 MG/ML 10 ML VIAL (for Rad CT) IVCONTRAST ONE (06:18)
--- NOTE | 2017-05-26 06:53 | RADRPT ---
EXAM DATE/TIME: 05/26/2017 06:09 [facility] COMPARISON: CHEST SINGLE AP, May 26, 2017, 3:13. INDICATIONS : Sepsis. IV CONTRAST: 95 cc Visipaque (iodixanol) IV ; Cumulative dose for multiple exams. RADIATION DOSE: 6.12 CTDIvol (mGy) ; Combined studies - Thorax/Abdomen/Pelvis MEDICAL HISTORY : Hypertension. Gastroesophageal reflux disease. Chronic obstructive pulmonary disease. SURGICAL HISTORY : Inguinal hernia repair. ENCOUNTER: Initial ACUITY: 1 day PAIN SCALE: Non-responsive LOCATION: chest TECHNIQUE: Volumetric scanning of the chest was performed. Using automated exposure control and adjustment of t he mA and/or kV according to patient size, radiation dose was kept as low as reasonably achievable to obtain optimal diagnostic quality images. DICOM format image data is available electronically for review and comparison. Follow-up recommendations for detected pulmonary nodules are based at a minimum on nodule size and pa tient risk factors according to Fleischner Society Guidelines. FINDINGS: There is lobar consolidation in the right lower lobe and subsegmental consolidation left lower lobe. No air bronchograms in the consolidated lung. Some patchy areas of airspace infiltrate in the centr al left lung. ET tube tip above the hugo. No evidence of mediastinal adenopathy. Moderate-sized bilateral pleur al effusions measuring 3.6 cm on the left and 2.0 cm on the right. Osseous structures are grossly in tact. CONCLUSION: Bilateral lower lobe consolidation and pleural effusions. Anuel Mccoy MD on May 26, 2017 at 6:46 Board Certified Radiologist. This report was verified electronically.
--- NOTE | 2017-05-26 07:06 | RADRPT ---
EXAM DATE/TIME: 05/26/2017 06:09 [facility] COMPARISON: CT ABDOMEN & PELVIS W CONTRAST, March 24, 2015, 9:34. INDICATIONS : Sepsis. IV CONTRAST: 95 cc Visipaque (iodixanol) IV ; Cumulative dose for multiple exams. ORAL CONTRAST: Prescribed oral contrast ingested. RADIATION DOSE: 6.12 CTDIvol (mGy) ; Combined studies - Thorax/Abdomen/Pelvis MEDICAL HISTORY : Hypertension. Chronic obstructive pulmonary disease. Gastroesophageal reflux disease. SURGICAL HISTORY : Inguinal hernia repair. ENCOUNTER: Initial ACUITY: 1 day PAIN SCALE: Non-responsive LOCATION: abdomen TECHNIQUE: Volumetric scanning of the abdomen and pelvis was performed. Using automated exposure control and ad justment of the mA and/or kV according to patient size, radiation dose was kept as low as reasonably achievable to obtain optimal diagnostic quality images. DICOM format image data is available electro nically for review and comparison. FINDINGS: The examination is abnormal demonstrating gas in the wall of multiple loops of small bowel and mildly distended loops of small bowel measuring up to 3.4 cm in dimension. There is also distention of the colon measuring up to 9.6 cm. There is some gas in the wall of the right colon. Free fluid tracks adjacent to the liver and spleen down both paracolic gutters and there is a moderate amount of free f luid in the pelvis. There is a triangular-shaped area of hypodensity in the posterior superior right lobe of the liver me asuring 3.6 cm. There is also gas seen in branching structures of the non-dependent left lobe sugges ting portal venous gas. There is also prominent amount of gas in the left portal vein. The spleen, kidneys, adrenal glands, pancreas, aorta are unremarkable. Gonsalez catheter is in the blad [place]. Osseous structures are grossly intact. CONCLUSION: Abnormal CT abdomen/pelvis with findings suggesting necrotizing enterocolitis; intraluminal gas in mu ltiple loops of small bowel, gastric wall, and right colon. There is also evidence of portal venous gas. Focal lesion in the posterior upper right lobe liver may represent an infarction. Anuel Mccoy MD on May 26, 2017 at 6:51 Board Certified Radiologist. This report was verified electronically.
[2017-05-26] MEDS: RESP: ACETYLCYSTEINE 10% 30 ML NEB NEB SCH ×2 (07:22)
--- NOTE | 2017-05-26 07:56 | HHI.CCPN ---
Subjective Remarks/Hospital Course 05/21: Patient is a 67-year-old male with past medical history of COPD, alcohol dependence, PTSD, anxiety, hypertension was initially brought to the [place] emergency department for altered mental status and agitation. Patient has a history of heavy alcohol use more than 6 beers in addition to Rum. Apparently he quit or reduced drinking 2 days ago. Patient was transferred to the main campus due to elevated mildly elevated troponin. Patient was admitted to the ICU by hospitalist for severe alcohol withdrawal and mildly elevated troponin was placed on CIWA protocol. Dr. Walls was consulted for cardiology and patient was placed on IV heparin and aspirin along with beta blockers. This was not deemed ACS Critical care medicine was consulted as patient was found to be progressively and severely agitated and uncooperative and becoming a threat to himself and others. On my evaluation he is unable to give any history and was in severe withdrawal and agitated. He has pulled out his right peripheral IV and is bleeding from the site. I have ordered a stat Ativan 2 mg IV 1 and placed on Precedex infusion. Will also place him on scheduled Librium 50 mg by mouth every 8 hours after placing an NG tube. Supplement multivitamin and thiamine. If his severe withdrawal symptoms are not controlled he may need endotracheal intubation and continuous heavy IV sedation 05/22: Patient on Precedex overnight. Has received Librium and appears to be drowsy currently. 05/23: Received 1 g of phenobarbital yesterday for extreme agitation by Dr. Manuel. Resumed on Precedex yesterday for agitation. Currently on Librium and drowsy. 05/24: Remains encephalopathic on Precedex. Chest x-ray done today shows left upper lobe infiltrate probably secondary to aspiration. We'll proceed with endotracheal intubation as patient appears not to be protecting airway currently in view of chest x-ray findings. LP ordered however cannot be done until Sunday as patient has been on aspirin. We will obtain alcantara cultures and start empiric antibiotics 05/25 Patient was intubated yesterday on Precedex drip for sedation. Given 1L bolus NS last night for hypotension. Tolerating tube feeds. T:99.8 05/26 Patient remains intubated became hypotensive overnight given 2L boluses and started on Levophed [address] abdomen this morning showed findings suggesting necrotizing enterocolitis; intraluminal gas in multiple loops of small bowel, gastric wall, and right colon. There is also evidence of portal venous gas. Discussed findings with Gen surgery Dr. Adams also spoke to patent's Yandy and awaiting her decision whether to proceed with surgery or not. Renal function worse with Cr: 1.64 from 1.07. Objective Vital Signs Date Time Temp Pulse Resp B/P (MAP) Pulse Ox O2 Delivery O2 Flow Rate FiO2 05/26/17 07:23 95 35 05/26/17 06:00 90 05/26/17 04:00 96.6 24 89/61 (70) 05/24/17 12:36 Nasal Cannula 6.00 Intake and Output 05/26/17 05/26/17 05/27/17 08:00 16:00 00:00 Intake Total 2737.5 ml Output Total 350 ml Balance 2387.5 ml Result Diagram: 05/26/1730905/26/17309 Other Results Laboratory Tests Test 05/25/17 08:45 05/25/17 10:45 05/25/17 18:40 05/26/17 01:10 Blood Gas Puncture Site RT RADIAL RT RADIAL Blood Gas Patient Temperature 98.6 98.6 Blood Gas HCO3 16 mmol/L 12 mmol/L Blood Gas Base Excess -7.5 mmol/L -12.8 mmol/L Blood Gas Oxygen Saturation 93 % 91 % Arterial Blood pH 7.42 7.33 Arterial Blood Partial Pressure CO2 26 mmHg 23 mmHg Arterial Blood Partial Pressure O2 79 mmHg 72 mmHg Arterial Blood Oxygen Content 14.4 Vol % 19.2 Vol % Arterial Blood Carboxyhemoglobin 0.6 % 0.5 % Arterial Blood Methemoglobin 1.5 % 1.3 % Blood Gas Hemoglobin 10.9 G/DL 15.1 G/DL Oxygen Delivery Device VENTILATOR VENTILATOR Blood Gas Ventilator Setting PRVC24/450/0.9/+5 PRVC/AC Blood Gas Inspired Oxygen 35 % 35 % White Blood Count 5.4 TH/MM3 Red Blood Count 3.39 MIL/MM3 Hemoglobin 11.1 GM/DL Hematocrit 32.7 % Mean Corpuscular Volume 96.2 FL Mean Corpuscular Hemoglobin 32.7 PG Mean Corpuscular Hemoglobin Concent 34.0 % Red Cell Distribution Width 14.5 % Platelet Count 70 TH/MM3 Mean Platelet Volume 9.9 FL Neutrophils (%) (Auto) 91.5 % Lymphocytes (%) (Auto) 4.1 % Monocytes (%) (Auto) 4.3 % Eosinophils (%) (Auto) 0.0 % Basophils (%) (Auto) 0.1 % Neutrophils # (Auto) 5.0 TH/MM3 Lymphocytes # (Auto) 0.2 TH/MM3 Monocytes # (Auto) 0.2 TH/MM3 Eosinophils # (Auto) 0.0 TH/MM3 Basophils # (Auto) 0.0 TH/MM3 CBC Comment AUTO DIFF Differential Total Cells Counted 100 Neutrophils % (Manual) 52 % Band Neutrophils % 26 % Lymphocytes % 9 % Monocytes % 8 % Neutrophils # (Manual) 4.5 TH/MM3 Metamyelocytes 2 % Myelocytes 3 % Nucleated Red Blood Cells 1 /100 WBC Differential Comment FINAL DIFF MANUAL Toxic Granulation 1+ Platelet Estimate LOW Platelet Morphology Comment NORMAL Ovalocytes 1+ Blood Urea Nitrogen 31 MG/DL Creatinine 1.07 MG/DL Random Glucose 185 MG/DL Total Protein 4.9 GM/DL Albumin 1.7 GM/DL Calcium Level 6.9 MG/DL Alkaline Phosphatase 40 U/L Aspartate Amino Transf (AST/SGOT) 34 U/L Alanine Aminotransferase (ALT/SGPT) 25 U/L Total Bilirubin 0.6 MG/DL Sodium Level 144 MEQ/L Potassium Level 4.2 MEQ/L Chloride Level 119 MEQ/L Carbon Dioxide Level 19.7 MEQ/L Anion Gap 5 MEQ/L Estimat Glomerular Filtration Rate 69 ML/MIN Protein Corrected Calcium 8.1 MG/DL Ammonia 46 MCMOL/L Urine Color YELLOW Urine Turbidity SLIGHT Urine pH 6.0 Urine Specific [place] 1.043 Urine Protein 30 mg/dL Urine Glucose (UA) TRACE mg/dL Urine Ketones TRACE mg/dL Urine Occult Blood MOD Urine Nitrite NEG Urine Bilirubin NEG Urine Urobilinogen 2.0 MG/DL Urine Leukocyte Esterase NEGATIVE Urine RBC 15-19 /hpf Urine WBC 0-2 /hpf Urine Squamous Epithelial Cells 0-5 /hpf Microscopic Urinalysis Comment CATH-CULT NOT IND Test 05/26/17 03:00 05/26/17 03:10 05/26/17 03:20 05/26/17 05:50 White Blood Count 14.2 TH/MM3 Red Blood Count 3.90 MIL/MM3 Hemoglobin 12.4 GM/DL Hematocrit 37.9 % Mean Corpuscular Volume 97.1 FL Mean Corpuscular Hemoglobin 31.8 PG Mean Corpuscular Hemoglobin Concent 32.7 % Red Cell Distribution Width 15.2 % Platelet Count 102 TH/MM3 Mean Platelet Volume 9.8 FL Neutrophils (%) (Auto) 84.6 % Lymphocytes (%) (Auto) 5.3 % Monocytes (%) (Auto) 9.8 % Eosinophils (%) (Auto) 0.1 % Basophils (%) (Auto) 0.2 % Neutrophils # (Auto) 12.0 TH/MM3 Lymphocytes # (Auto) 0.7 TH/MM3 Monocytes # (Auto) 1.4 TH/MM3 Eosinophils # (Auto) 0.0 TH/MM3 Basophils # (Auto) 0.0 TH/MM3 CBC Comment AUTO DIFF Differential Total Cells Counted 100 Neutrophils % (Manual) 46 % Band Neutrophils % 27 % Lymphocytes % 8 % Monocytes % 6 % Neutrophils # (Manual) 12.2 TH/MM3 Metamyelocytes 12 % Myelocytes 1 % Nucleated Red Blood Cells 4 /100 WBC Differential Comment FINAL DIFF MANUAL Platelet Estimate LOW Platelet Morphology Comment NORMAL Keratocytes OCC Blood Urea Nitrogen 35 MG/DL Creatinine 1.64 MG/DL Random Glucose 84 MG/DL Total Protein 3.9 GM/DL Albumin 1.3 GM/DL Calcium Level 6.1 MG/DL Phosphorus Level 2.1 MG/DL Magnesium Level 2.2 MG/DL Alkaline Phosphatase 34 U/L Aspartate Amino Transf (AST/SGOT) 79 U/L Alanine Aminotransferase (ALT/SGPT) 52 U/L Total Bilirubin 0.6 MG/DL Sodium Level 147 MEQ/L Potassium Level 4.2 MEQ/L Chloride Level 121 MEQ/L Carbon Dioxide Level 16.2 MEQ/L Anion Gap 10 MEQ/L Estimat Glomerular Filtration Rate 42 ML/MIN Lactic Acid Level 2.2 mmol/L 2.6 mmol/L Protein Corrected Calcium 7.7 MG/DL Troponin I LESS THAN 0.02 NG/ML Lipase 36 U/L Urine Color DARK-BROWN Urine Turbidity HAZY Urine pH 6.5 Urine Specific [place] GREATER THAN 1.050 Urine Protein TRACE mg/dL Urine Glucose (UA) TRACE mg/dL Urine Ketones TRACE mg/dL Urine Occult Blood MOD Urine Nitrite NEG Urine Bilirubin NEG Urine Urobilinogen 2.0 MG/DL Urine Leukocyte Esterase TRACE Urine RBC 4-9 /hpf Urine WBC 0-2 /hpf Urine Squamous Epithelial Cells 0-5 /hpf Urine Bacteria RARE /hpf Microscopic Urinalysis Comment CATH-CULTURE IND Imaging Last Impressions Chest X-Ray 05/26/17 0000 Signed Impressions: Service Date/Time: Friday, May 26, 2017 03:13 - CONCLUSION: 1. Right subclavian catheter tip in the proximal superior vena cava. No evidence of pneumothorax. 2. Bilateral lower lung consolidation. Anuel Mccoy MD Chest CT 05/26/17 0000 Signed Impressions: Service Date/Time: Friday, May 26, 2017 06:09 - CONCLUSION: Bilateral lower lobe consolidation and pleural effusions. Anuel Mccoy MD Abdomen/Pelvis CT 05/26/17 0000 Signed Impressions: Service Date/Time: Friday, May 26, 2017 06:09 - CONCLUSION: Abnormal CT abdomen/pelvis with findings suggesting necrotizing enterocolitis; intraluminal gas in multiple loops of small bowel, gastric wall, and right colon. There is also evidence of portal venous gas. Focal lesion in the posterior upper right lobe liver may represent an infarction. Anuel Mccoy MD Head CT 05/20/17 0712 Signed Impressions: Service Date/Time: Saturday, May 20, 2017 08:09 - CONCLUSION: Stable CT scan of the brain without evidence of acute infarct, hemorrhage, mass or edema. Cholo Mustafa MD Objective Remarks GENERAL: Patient is 67 yo intubated and sedated. SKIN: Warm and dry. HEAD: Normocephalic. EYES: No scleral icterus. No injection or drainage. NECK: Supple, trachea midline. No JVD or lymphadenopathy. CARDIOVASCULAR: Tachycardic without murmurs, gallops, or rubs. RESPIRATORY: Breath sounds equal bilaterally. No accessory muscle use. GASTROINTESTINAL: Distended, firm, no BS. MUSCULOSKELETAL: No cyanosis, or edema. Neuro: Intubated A/P Assessment and Plan NEURO: Alcohol withdrawal Acute encephalopathy Alcohol dependence PTSD/anxiety -Fentanyl for sedation . Monitor neuro status. -Continue Ativan per CIWA protocol. - LP ordered however to be done on Sunday per IR as patient has been on aspirin. Neurology consult requested for encephalopathy. -EEG showed mild diffuse encephalopathy -CT brain 05/20 : No acute findings. Check MRI brain RESP: Acute COPD exacerbation Respiratory insufficiency Aspiration pneumonia Tobacco abuse - Continue with vent support keep st >92% - DuoNeb every 4 hours scheduled and when necessary. ICU vent bundle, Mucomyst - IV Solu-Medrol 40 mg Q12 -CXR 05/25- improved aeration AG. CV: Mild troponin elevation - Continue with Levophed .Monitor HR and BP keep MAP>65mmHg -Patient was given 2L NS boluses overnight will place on bicarb drip @150ml/hr. - Cardiology Dr. Walls. Lactic acid 2.6 -Echo showed EF 60-65% GI: - IV famotidine -TF on hold. OGT to suction-Had approx 450ml gastric residuals -CT abdomen/pelvis: suggesting necrotizing enterocolitis; intraluminal gas in multiple loops of small bowel, gastric wall, and right colon. There is also evidence of portal venous gas. Discussed with Dr. Adams( Surgery) patient is high risk for surgery discussed with patient's as well and awaiting her decision. : - Monitor renal function, I/O's, electrolytes replacement per protocol. -Given [address] on bicarb drip(D5W+2amps bicarb @150ml/hr) ID: -Continue abx(IV Zosyn and Vanco) Monitor for signs of infections ( Fever, WBC) 05/24 Sputum: Staph Aureus, GNR 05/24 BC: NGTD Follow up on Blood, sputum and urine cx from today. HEME: - Monitor CBC, CMP, coags, Follow up on HIT ab ENDO: - SSI for glycemic control PROPH: - Bilateral lower extremity SCDs. famotidine LINES: - Utilize peripheral IVs, Right subclavian CVP placed 05/26 Patient is critically ill with septic shock, resp failure , worsening renal function, encephalopathy and now with necrotizing enterocolitis; intraluminal gas in multiple loops of small bowel, gastric wall, and right colon. Discussed with patient's Yandy re CT abdomen results and overall prognosis awaiting decision from re goals of care. Spoke to Dr. Adams, 1050 Addendum: Spoke to patient 's again along with her daughter and son with Dr. Adams and family elected to proceed with withdrawal life support and transition to comfort care. Will proceed as requested. CCT 40 ins Antonio Mathias MD May 26, 2017 07:56
[2017-05-26] MEDS ORDERED: PANTOPRAZOLE SODIUM 40 MG VIAL IV PUSH SCH (08:00)
[2017-05-26] MEDS ORDERED: SODIUM BICARBONATE 8.4% INJ 50 MEQ/50 ML SYR IV PUSH ONE (08:00)
[2017-05-26] MEDS ORDERED: DEXTROSE 50% IN WATER 50 ML SYRINGE ONE (08:01)
[2017-05-26] MEDS: SODIUM CHLORIDE 0.9% FLUSH 10 ML FLUSH IV FLUSH SCH (08:23)
[2017-05-26] MEDS ORDERED: SODIUM BICARBONATE 8.4% INJ 100 MEQ in DEXTROSE 5% IN WATE 1000ML INJ 1,000 ML IV SCH ×2 (09:00)
[2017-05-26 10:35] LABS: C. DIFF EPI 027 PRESUMPTIVE NEGATIVE (NEGATIVE)
[2017-05-26] MEDS ORDERED: LORazepam 2 MG/ML VIAL IV PUSH ONE ×2 (10:45→11:15)
[2017-05-26] MEDS ORDERED: HYOSCYAMINE 0.5 MG/ML AMP IV PUSH ONE (10:45)
[2017-05-26] MEDS ORDERED: HYDROmorphone HCL PF 2 MG/ML VIAL IV PUSH ONE (10:45)
[2017-05-26] MEDS ORDERED: MORPHINE SULFATE 4 MG/ML INJ IV PUSH ONE (11:15)
[2017-05-26] MEDS ORDERED: LORazepam 2 MG/ML VIAL IV PUSH PRN (11:15)
[2017-05-26] MEDS ORDERED: HYDROmorphone HCL PF 2 MG/ML VIAL IV PUSH PRN (11:15)
[2017-05-26] MEDS ORDERED: HYOSCYAMINE 0.5 MG/ML AMP IV PUSH PRN (11:15)
[2017-05-26] MEDS ORDERED: MORPHINE SULFATE 4 MG/ML INJ IV PUSH PRN (11:15)
[2017-05-26] MEDS ORDERED: HYDROmorphone HCL PF 2 MG/ML VIAL IV PUSH SCH (12:00)
--- NOTE | 2017-05-26 13:25 | MB ---
cc: NEY MCCORMICK M.D., ALAA M.D. DATE OF CONSULTATION: 05/26/2017 REASON FOR CONSULTATION: Necrotizing enterocolitis HISTORY OF PRESENT ILLNESS The patient is a 67-year-old male who is brought in initially on 05/20/2017 for altered mental status and agitation. The patient was seen in [place] earlier in the week for shortness of breath and wheezing. The patient was placed on CIWA protocol due to past medical history and was transferred to ICU from the ER for alcohol withdrawal and mildly elevated troponin. The patient was placed on IV heparin and aspirin along with beta blockers. The patient became progressively severely agitated and uncooperative and was placed Spersadex infusion and Librium. He was ultimately intubated and managed by the line supply. On May 24, 2017 the patient was intubated for airway protection due to acute respiratory failure and pneumonia. The patient was hemodynamically stable with mild anemia and normal white count of 4.6. He then developed acute change earlier this morning with bloody emesis and hypotension. A CT scan was obtained at 0600 hours which demonstrated air in the wall of the stomach, small intestine, and right colon as well as portal venous and intrahepatic gas with a focal lesion in the upper right lobe of the liver which may represent an infarction. WBCs of also increased today to 14.2 from 5.4 yesterday. The patient's lactate level has increased a 2.6. PHYSICAL EXAMINATION: IN GENERAL: physical exam reveals an obtunded intubated male on 4 mics of Levophed. VITAL SIGNS: Blood pressure is 76/58, pulse 100 on 95% sat on 35% FIO2. CHEST: The chest is clear to auscultation. CARDIOVASCULAR SYSTEM: Cardiac exam reveals tachycardia without murmurs. ABDOMEN: His skin is mottled and cool. ABDOMEN: The abdomen is quiet and distended. There is bloody stool in the rectal bag and greenish brown output in the NG. ASSESSMENT Necrotizing enterocolitis in patient with alcohol abuse. Both the line supply and myself have discussed with the family the uniformly poor outcome given the fact that he likely has nonobstructive intestinal ischemia. The family wishes comfort measures and we would not perform any futile surgical procedures. Thank you Dr. Mathias for asking me to see this individual. I will be available as needed. MD KILLIAN Modi/phong /10:41 AM /1:23 PM
[2017-05-26 14:27] LABS: HEPARIN AB OD 0.204 O.D. (0.000-0.300); HEPARIN INDUCED PLATELET AB NEGATIVE (NEGATIVE)
== END 2017-05-26 12:21 | disposition expired | DRG 896 ==
LOC: PHED 06:53 → PHEDA 09:22 → HCIN 14:18 → HIME 15:36
PROVIDERS: ADMIT Internal Medicine; ATTEND Internal Medicine
PROC: 0T9B70Z Drainage of Bladder with Drainage Device, Via Natural or Artificial Opening (ICD-10-PCS; 2017-05-23)
PROC: 5A1945Z Respiratory Ventilation, 24-96 Consecutive Hours (ICD-10-PCS; principal; 2017-05-24)
PROC: 0BH17EZ Insertion of Endotracheal Airway into Trachea, Via Natural or Artificial Opening (ICD-10-PCS; 2017-05-24)
PROC: 0CJS8ZZ Inspection of Larynx, Via Natural or Artificial Opening Endoscopic (ICD-10-PCS; 2017-05-24)
PROC: 02HV33Z Insertion of Infusion Device into Superior Vena Cava, Percutaneous Approach (ICD-10-PCS; 2017-05-26)
DX: F10.231 Alcohol dependence with withdrawal delirium (principal); G93.40 Encephalopathy, unspecified; J96.00 Acute respiratory failure, unspecified whether with hypoxia or hypercapnia; J69.0 Pneumonitis due to inhalation of food and vomit; K55.30 Necrotizing enterocolitis, unspecified; E87.1 Hypo-osmolality and hyponatremia; J44.1 Chronic obstructive pulmonary disease with (acute) exacerbation; I10 Essential (primary) hypertension; R74.8 Abnormal levels of other serum enzymes; R33.9 Retention of urine, unspecified; Y90.0 Blood alcohol level of less than 20 mg/100 ml; D69.6 Thrombocytopenia, unspecified; K21.9 Gastro-esophageal reflux disease without esophagitis; D64.9 Anemia, unspecified; M19.90 Unspecified osteoarthritis, unspecified site; H91.90 Unspecified hearing loss, unspecified ear; F43.10 Post-traumatic stress disorder, unspecified; Z51.5 Encounter for palliative care; Z78.1 Physical restraint status; Z87.891 Personal history of nicotine dependence; Z88.6 Allergy status to analgesic agent
CPT/HCPCS: 31500; 36556; 36600; 70450; 71010; 71260; 74177; 76937; 80053; 80061; 80184; 80307; 81001; 82140; 82550; 82552; 82607; 82746; 82805; 82948; 83036; 83605; 83690; 83735; 84100; 84439; 84443; 84484; 85007; 85025; 85027; 85610; 85652; 85730; 86022; 86403; 86592; 87040; 87070; 87077; 87086; 87147; 87186; 87205; 87449; 87493; 87641; 93005; 93306; 94002; 94003; 94640; 94664; 95819; 96361; 96372; 96374; J0330; J0360; J1170; J1200; J1644; J1980; J2060; J2250; J2543; J2560; J2920; J2930; J3010; J3370; J3411; J3480; J7030; J7040; J7050; J7070; J7608; J7613; Q9963; Q9967